=== PATIENT | male | born 1970 | race African-American/Black ===

== ENCOUNTER 2016-11-10 15:17 | Emergency (ER) | payer OTHER ==
[2016-11-10 16:02] VITALS: BP 128/81; PULSE 93; TEMP 102; BMI 23.6
[2016-11-10] MEDS ORDERED: ACETAMINOPHEN 325 MG TABLET (FP) PO ONE (16:26)
[2016-11-10] MEDS ORDERED: ACETAMINOPHEN 325 MG TABLET (FP) ONE (16:40)
--- NOTE | 2016-11-10 17:08 | PDOC ---
History of Present Illness - General History Source: Patient, Spouse Exam Limitations: No Limitations - History of Present Illness Initial Comments: 11/10/16 17:15 Patient is a 46 year old male with significant past medical history of severe polymyositis (since 1999) who presents to the ED with complaining of productive cough, fever and chills. Patient notes that he is experiencing chills and diffuse body aches, but denies vomiting and nausea. He also reports increased muscle sensitivity. He notes that he took 2 tylenol this AM for the fever. Patient reports recent sick contact with his who had recent flu. As per the patient did not receive a flu shot this year. Patient was diagnosed with polymyositis in 1999 and has diffuse motor weakness and does not ambulate. [employer] - Dr. Mustafa <Temi Padilla - Last Filed: 11/10/16 19:30> <Karen Echeverria - Last Filed: 11/10/16 20:27> - General Chief Complaint: Respiratory Stated Complaint: WEAKNESS OF MUSCLE Time Seen by Provider: 11/10/16 16:20 Past History <Temi Padilla - Last Filed: 11/10/16 19:30> - Past Medical History Other medical history: polymyositis - Psycho/Social/Smoking Cessation Hx Suicidal Ideation: No Smoking History: Never smoked Information on smoking cessation initiated: No <Karen Echeverria - Last Filed: 11/10/16 20:27> - Past Medical History Allergies/Adverse Reactions: Allergies Allergy/AdvReac Type Severity Reaction Status Date / Time No Known Allergies Allergy Verified 11/10/16 16:03 Home Medications: Ambulatory Orders Azithromycin [Zithromax -] 250 mg PO UTDICT #6 tab 11/10/16 Folic Acid - 1 mg PO DAILY 11/10/16 Methotrexate Sodium [Methotrexate] 0 mg PO WEEKLY 11/10/16 Oseltamivir Phosphate [Tamiflu -] 75 mg PO BID #10 capsule 11/10/16 Prednisone [Deltasone] 25 mg PO DAILY 11/10/16 Review of Systems - Review of Systems Able to Perform ROS?: Yes Comments:: 11/10/16 17:16 CONSTITUTIONAL: Present: fever, chills, generalized weakness, diffuse body aches Absent: diaphoresis, malaise, loss of appetite HEENT: Absent: rhinorrhea, nasal congestion, throat pain, throat swelling, difficulty swallowing, mouth swelling, ear pain, eye pain, visual Changes CARDIOVASCULAR: Absent: chest pain, syncope, palpitations, irregular heart rate, lightheadedness , peripheral edema RESPIRATORY: Present: cough Absent: shortness of breath, dyspnea with exertion, orthopnea, wheezing, stridor , hemoptysis GASTROINTESTINAL: Absent: abdominal pain, abdominal distension, nausea, vomiting, diarrhea, constipation, melena, hematochezia GENITOURINARY: Absent: dysuria, frequency, urgency, hesitancy, hematuria, flank pain, genital pain MUSCULOSKELETAL: Absent: myalgia, arthralgia, joint swelling SKIN: Absent: rash, itching, pallor HEMATOLOGIC/IMMUNOLOGIC: Absent: easy bleeding, easy bruising, lymphadenopathy, frequent infections ENDOCRINE: Absent: unexplained weight gain, unexplained weight loss, heat intolerance, cold intolerance NEUROLOGIC: Present: muscle sensitivity and weakness Absent: headache, dizziness, seizure, mental status changes, bladder or bowel incontinence PSYCHIATRIC: Absent: anxiety, depression, suicidal or homicidal ideation, hallucinations. <Temi Padilla - Last Filed: 11/10/16 19:30> *Physical Exam - Vital Signs Last Vital Signs Temp Pulse Resp BP Pulse Ox 102 F H 93 H 20 128/81 96 11/10/16 15:59 11/10/16 15:59 11/10/16 15:59 11/10/16 15:59 11/10/16 16:52 - Physical Exam Comments: 11/10/16 17:16 GENERAL: +Warm, A&OX3. Well developed, well nourished. No acute distress. HEENT: Normocephalic, atraumatic. PERRLA, EOMI. No conjunctival pallor. Sclera are non- icteric. Moist mucous membranes. Oropharynx is clear. NECK: Supple. Full ROM. No JVD. Carotid pulses 2+ and symmetric, without bruits. No thyromegaly. No lymphadenopathy. CARDIOVASCULAR: +Tachycardic. No murmurs, rubs, or gallops. Distal pulses are 2+ and symmetric. PULMONARY: +Scattered rhonchi. No evidence of respiratory distress. Lungs clear to auscultation bilaterally. No wheezing, no rales. ABDOMINAL: Soft. Non-tender. Non-distended. No rebound or guarding. No organomegaly. Normoactive bowel sounds. MUSCULOSKELETAL Normal range of motion at all joints. No bony deformities or tenderness. No CVA tenderness. EXTREMITIES: +extreme lower extremity weakness. No cyanosis. No clubbing. No edema. No calf tenderness. SKIN: Warm and dry. Normal capillary refill. No rashes. No jaundice. NEUROLOGICAL: there is no resistance to gravity 2/5 , unable to move extremities, A&OX3 PSYCHIATRIC: Cooperative. Good eye contact. Appropriate mood and affect. <Temi Padilla - Last Filed: 11/10/16 19:30> - Vital Signs Last Vital Signs Temp Pulse Resp BP Pulse Ox 102 F H 93 H 20 128/81 96 11/10/16 15:59 11/10/16 15:59 11/10/16 15:59 11/10/16 15:59 11/10/16 16:52 <Karen Echeverria - Last Filed: 11/10/16 20:27> Heart Score/ECG Review #1 11/10/16 17:17 EKG: Sinus rhythm at 80 bpm with premature ventricular complexes Possible left atrial enlargement Incomplete right bundle branch block Left anterior fascicular block Left ventricular hypertrophy with repolarization abnormality <Temi Padilla - Last Filed: 11/10/16 19:30> ED Treatment Course - LABORATORY CBC & Chemistry Diagram: 11/10/16 17:00 11/10/16 17:00 - ADDITIONAL ORDERS Additional order review: 11/10/16 16:43 Influenza Types A,B Antigen (DEVI) - Final Nasopharyngeal Swab - Final - RADIOLOGY Radiology Studies Ordered: 11/10/16 17:17 CXR: Left retrocardiac infiltrate and possible small left effusion is noted. Atelectasis at the right base is noted and cannot exclude small infiltrate. Cardiac silhouette is upper limits of normal in size. IMPRESSION: Left retrocardiac infiltrate. See above. Reported By: Annie Quintero MD - Medications Given in the ED: ED Medications Discontinued Medications Generic Name Dose Route Start Last Admin Trade Name Freq PRN Reason Stop Dose Admin Acetaminophen 650 mg 11/10/16 16:26 11/10/16 16:45 Tylenol - PO 11/10/16 16:27 650 mg ONCE ONE Administration <Temi Padilla - Last Filed: 11/10/16 19:30> - LABORATORY CBC & Chemistry Diagram: 11/10/16 17:00 11/10/16 17:00 - Medications Given in the ED: ED Medications Discontinued Medications Generic Name Dose Route Start Last Admin Trade Name Kahlil PRN Reason Stop Dose Admin Acetaminophen 650 mg 11/10/16 16:26 11/10/16 16:45 Tylenol - PO 11/10/16 16:27 650 mg ONCE ONE Administration <Karen Echeverria - Last Filed: 11/10/16 20:27> Medical Decision Making - Medical Decision Making 11/10/16 17:18 A page was placed to Dr. Mustafa. Awaiting a call back. 11/10/16 18:50 A call was placed to Dr. Mustafa at his cell phone since there was no call back from his service. Awaiting a call back. 11/10/16 18:56 A second page was placed to Dr. Mustafa at his service. 11/10/16 19:30 A third page was placed to Dr. Mustafa. <Temi Padilla - Last Filed: 11/10/16 19:30> - Medical Decision Making 11/10/16 20:24 46-year-old male with a history of polymyositis has fever, coughing and nasal congestion. His had the flu last week. Patient's influenza culture is positive. Pulse ox is 96, 97% on room and he denies any dyspnea or chest pain -pt started on tamiflu I spoke at length with the pt and his and explained that if he feels he has any difficulty breathing ,they are to call 911 and return to the ER <Karen Echeverria - Last Filed: 11/10/16 20:27> *DC/Admit/Observation/Transfer - Attestations Scribe Attestion: 11/10/16 17:18 Documentation prepared by ELTON Villarreal, acting as medical field representative for Karen Echeverria MD. <Temi Padilla - Last Filed: 11/10/16 19:30> <Karen Echeverria - Last Filed: 11/10/16 20:27> Diagnosis at time of Disposition: Influenza Fever Qualifiers: Fever type: unspecified Qualified Code(s): R50.9 - Fever, unspecified - Discharge Dispostion Disposition: HOME Condition at time of disposition: Stable - Prescriptions Prescriptions: Oseltamivir Phosphate [Tamiflu -] 75 mg PO BID #10 capsule Azithromycin [Zithromax -] 250 mg PO UTDICT #6 tab - Referrals Referrals: Sera Sidhu MD [Primary Care Provider] - - Patient Instructions Printed Discharge Instructions: DI for Influenza -- Adult, DI for Fever ( Symptom) -- Adult Additional Instructions: You have the flu IF YOU DEVELOP ANY DIFFICULTY BREATHING CALL 911 AND RETURN TO THE EMERGENCY DEPARTMENT PLEASE [employer] YOUR MEDICATIONS AT YOUR [facility]
[2016-11-10] MEDS ORDERED: AZITHROMYCIN IVPB 250 ML IVPB ONE (17:17)
[2016-11-10] MEDS ORDERED: OSELTAMIVIR PHOSPHATE 75 MG CAPSULE ONE (17:17)
[2016-11-10] MEDS ORDERED: CEFTRIAXONE 50 ML ONE (17:17)
[2016-11-10] MEDS ORDERED: AZITHROMYCIN IVPB 500 MG in DEXTROSE 5%-WATER - 250 ML IVPB ONE (17:23)
[2016-11-10] MEDS ORDERED: OSELTAMIVIR PHOSPHATE 75 MG CAPSULE PO ONE (17:23)
[2016-11-10] MEDS ORDERED: CEFTRIAXONE 1 GM in DEXTROSE 5%-WATER - 50 ML IVPB ONE (17:23)
[2016-11-10 17:39] LABS: MCH 25.5 pg (25.7-33.7); MCHC 31.5 g/dl (32.0-35.9); MEAN CELL VOLUME 80.8 fl (80-96); MEAN PLT VOLUME 7.7 fl (7.5-11.1); PLATELET COUNT 213 K/MM3 (134-434); RDW 23.7 % (11.9-15.9); WHITE BLOOD COUNT 8.7 K/mm3 (4.0-10.0)
[2016-11-10 18:10] LABS: METAMYELOCYTE 2 % (0-2); PLATELET ESTIMATE ADEQUATE (NORMAL)
[2016-11-10 18:11] LABS: ANISOCYTOSIS 3+; OVALOCYTES 1+; PLATELET COMMENT2 NO CLUMPING NOTED; POIKILOCYTOSIS 1+; POLYCHROMASIA 1+
[2016-11-10 18:41] LABS: ALBUMIN 3.3 g/dl (3.4-5.0); ALK PHOS 93 U/L (45-117); ANION GAP 9 (8-16); BILIRUBIN,TOTAL 0.6 mg/dL (0.2-1.0); CALCIUM 8.2 mg/dL (8.5-10.1); CO2 30 mmol/L (21-32); CREATININE 0.2 mg/dL (0.7-1.3); GLUCOSE,RANDOM 79 mg/dL (74-106); SGOT/AST 14 U/L (15-37); SGPT/ALT 19 U/L (12-78); TOT PROT 6.4 g/dl (6.4-8.2)
[2016-11-10] MEDS ORDERED: SODIUM CHLORIDE 1,000 ML IV STA (19:39)
--- NOTE | 2016-11-11 12:53 | EKG ---
Test Reason : Blood Pressure : / mmHG Vent. Rate : 080 BPM Atrial Rate : 080 BPM P-R Int : 198 ms QRS Dur : 100 ms QT Int : 336 ms P-R-T Axes : 016 -74 084 degrees QTc Int : 387 ms SINUS RHYTHM WITH OCCASIONAL PREMATURE VENTRICULAR COMPLEXES POSSIBLE LEFT ATRIAL ENLARGEMENT NONSPECIFIC T WAVE ABNORMALITY LEFT ANTERIOR FASCICULAR BLOCK LEFT VENTRICULAR HYPERTROPHY WITH REPOLARIZATION ABNORMALITY ABNORMAL ECG NO PREVIOUS ECGS AVAILABLE Confirmed by NATA COLEMAN, PABLITO ([id number]) on 11/11/2016 12:53:14 PM Referred By: Confirmed By:PABLITO PEACE MD
== END 2016-11-10 21:28 | disposition home or self-care (01) ==
LOC: JER 15:17
PROC: 3E0337Z Introduction of Electrolytic and Water Balance Substance into Peripheral Vein, Percutaneous Approach (ICD-10-PCS; principal; 2016-11-10)
PROC: 3E03329 Introduction of Other Anti-infective into Peripheral Vein, Percutaneous Approach (ICD-10-PCS; 2016-11-10)
PROC: 3E03329 Introduction of Other Anti-infective into Peripheral Vein, Percutaneous Approach (ICD-10-PCS; 2016-11-10)
DX: J09.X2 Influenza due to identified novel influenza A virus with other respiratory manifestations (principal); M33.20 Polymyositis, organ involvement unspecified
CPT/HCPCS: 36415; 71010-TC; 80053; 85025; 87040; 87804; 93005; 93010; 96361; 96365; 96367; 99283-25

== ENCOUNTER 2020-12-03 17:20 | Inpatient (IN) | payer OTHER ==
[2020-12-03] MEDS ORDERED: SODIUM CHLORIDE 1,000 ML IV STA (17:33)
[2020-12-03] MEDS ORDERED: ETOMIDATE 20 MG/10 ML AMPUL IVPUSH ONE (17:34)
[2020-12-03] MEDS ORDERED: ROCURONIUM BROMIDE 50 MG/5 ML VIAL IV ONE (17:34)
[2020-12-03] MEDS ORDERED: MIDAZOLAM IN 0.9 % SOD.CHLORID 100 MG/100 ML PLAST..BAG IVPB SCH (17:45)
[2020-12-03 18:24] LABS: VENOUS O2 SATURATION 99.8 % (70-80); VENOUS PCO2 47.9 mmHg (38-52); VENOUS PH 7.516 (7.310-7.410)
[2020-12-03 18:25] LABS: BASO % 0.1 % (0-2.0); EOS % 0.1 % (0-4.5); HEMATOCRIT 43.5 % (35.4-49); HEMOGLOBIN 14.5 GM/dL (11.7-16.9); MCH 31.2 pg (25.7-33.7); MCHC 33.4 g/dl (32.0-35.9); MEAN CELL VOLUME 93.4 fl (80-96); MEAN PLT VOLUME 8.4 fl (7.5-11.1); NEUT % 86.8 % (42.8-82.8); PLATELET COUNT 146 K/MM3 (134-434); RBC 4.66 M/mm3 (4.00-5.60); RDW 16.7 % (11.9-15.9); WHITE BLOOD COUNT 2.8 K/mm3 (4.0-10.0)
[2020-12-03 18:31] LABS: INR 1.06 (0.83-1.09); PROTHROMBIN TIME (PATIENT) 12.8 SEC (9.7-13.0)
[2020-12-03 18:34] LABS: ACTIVATED PTT 29.9 SECONDS (25.2-36.5)
[2020-12-03] MEDS ORDERED: CEFTRIAXONE 1 GM in DEXTROSE 5%-WATER - 100 ML IVPB ONE (18:52)
[2020-12-03] MEDS ORDERED: SODIUM CHLORIDE 1,000 ML IV SCH (19:30)
[2020-12-03] MEDS ORDERED: MIDAZOLAM 100 MG/100 ML MG IVPB ONE (20:05)
[2020-12-03] MEDS ORDERED: FENTANYL NS IVPB 500 MCG/100 ML BAG IVPB ONE (20:05)
[2020-12-03 20:11] LABS: LDH 287 U/L (87-246)
[2020-12-03 20:12] LABS: ALK PHOS 58 U/L (45-117); N-TERMINAL BNP 9113.4 pg/ml (5-125)
[2020-12-03 20:13] LABS: ALBUMIN 3.2 g/dl (3.4-5.0); ANION GAP 15 MMOL/L (8-16); BILIRUBIN,DIRECT 0.2 mg/dL (0.0-0.2); BILIRUBIN,TOTAL 0.7 mg/dL (0.2-1); BLOOD UREA NITROGEN 18.1 mg/dL (7-18); CALCIUM 8.3 mg/dL (8.5-10.1); CHLORIDE 76 mmol/L (98-107); CO2 31 mmol/L (21-32); CREATININE < 0.2 mg/dL (0.55-1.3); GLUCOSE,RANDOM 120 mg/dL (74-106); MAGNESIUM 1.8 mg/dL (1.8-2.4); PHOSPHOROUS 3.2 mg/dL (2.5-4.9); POTASSIUM 4.3 mmol/L (3.5-5.1); SGOT/AST 16 U/L (15-37); SGPT/ALT 14 U/L (13-61); SODIUM 122 mmol/L (136-145); TOT PROT 5.8 g/dl (6.4-8.2)
[2020-12-03] MEDS: FENTANYL NS IVPB 500 MCG/100 ML BAG IVPB SCH (20:28)
[2020-12-03] MEDS ORDERED: CEFTRIAXONE 1 GM/50 ML BAG ONE (20:29)
[2020-12-03 21:28] LABS: COCAINE, UR NEGATIVE ng/ml (CUTOFF=300); OPIATES, URI NEGATIVE ng/ml (CUTOFF=300); PHENCYCLIDINE,URINE NEGATIVE ng/ml (CUTOFF=25); URINE AMPHETAMINES NEGATIVE ng/ml (CUTOFF=500); URINE BENZODIAZEPINES NEGATIVE ng/ml (CUTOFF=200)
[2020-12-03 21:29] LABS: METHADONE, UR NEGATIVE ng/ml (CUTOFF=300)
[2020-12-03 21:33] LABS: URINE BARBITURATES NEGATIVE ng/ml (CUTOFF=200)
[2020-12-03 21:34] LABS: EPI CELLS 13 /uL (0-25.1); HYALINE CASTS 0 /uL (0-3.1); PH,URINE 7.5 (5.0-8.0); URINE APPEARANCE CLEAR; URINE BACTERIA >9,000 /uL (0-1359); URINE BILIRUBIN NEGATIVE (NEGATIVE); URINE COLOR YELLOW; URINE GLUCOSE (UA) NEGATIVE (NEGATIVE); URINE KETONE TRACE (NEGATIVE); URINE LEUK ESTERASE NEGATIVE (NEGATIVE); URINE NITRITE POSITIVE (NEGATIVE); URINE PROTEIN NEGATIVE (NEGATIVE); URINE RBC 5 /uL (0-23.9); URINE UROBILINOGEN 0.2 mg/dL (0.2-1.0); URINE WBC 19 /uL (0-25.8)
[2020-12-03] MEDS: MUPIROCIN 2% TOPICAL OINTMENT FOR DECOLONIZATION NS SCH (22:12)
[2020-12-03] MEDS: CHLORHEXIDINE GLUCONATE 4% CLEANSER FOR DECOLONIZATION TP SCH (22:12)
[2020-12-04] MEDS ORDERED: SODIUM CHLORIDE 500 ML IV STA (03:07)
[2020-12-04 07:03] LABS: BASO % 0.2 % (0-2.0); HEMATOCRIT 34.4 % (35.4-49); HEMOGLOBIN 11.4 GM/dL (11.7-16.9); LYMPH % 2.3 % (8-40); MCH 31.3 pg (25.7-33.7); MCHC 33.3 g/dl (32.0-35.9); MEAN PLT VOLUME 9.3 fl (7.5-11.1); MONO % 9.6 % (3.8-10.2); NEUT % 87.9 % (42.8-82.8); RBC 3.66 M/mm3 (4.00-5.60); RDW 16.6 % (11.9-15.9); WHITE BLOOD COUNT 9.9 K/mm3 (4.0-10.0)
[2020-12-04 07:52] LABS: CHLORIDE 97 mmol/L (98-107); SODIUM 135 mmol/L (136-145)
[2020-12-04 08:03] LABS: INR 1.26 (0.83-1.09); PROTHROMBIN TIME (PATIENT) 15.1 SEC (9.7-13.0)
[2020-12-04 08:06] LABS: ACTIVATED PTT 30.3 SECONDS (25.2-36.5)
[2020-12-04 08:31] LABS: ALBUMIN 2.1 g/dl (3.4-5.0); BLOOD UREA NITROGEN 10.9 mg/dL (7-18); CO2 28 mmol/L (21-32)
[2020-12-04 08:32] LABS: MAGNESIUM 1.2 mg/dL (1.8-2.4)
[2020-12-04 08:34] LABS: SGPT/ALT 8 U/L (13-61)
[2020-12-04 08:35] LABS: BILIRUBIN,TOTAL 0.8 mg/dL (0.2-1); TOT PROT 3.8 g/dl (6.4-8.2)
[2020-12-04 08:36] LABS: SGOT/AST 6 U/L (15-37)
[2020-12-04 08:37] LABS: ALK PHOS 37 U/L (45-117)
[2020-12-04] MEDS: PANTOPRAZOLE SODIUM 40 MG VIAL IVPUSH SCH (09:47)
[2020-12-04 10:34] LABS: PLATELET COUNT 95 K/MM3 (134-434)
[2020-12-04 10:45] LABS: ANION GAP 10 MMOL/L (8-16); CREATININE < 0.2 mg/dL (0.55-1.3)
[2020-12-04] MEDS ORDERED: METOPROLOL TARTRATE 5 MG/5 ML VIAL ONE (11:24)
[2020-12-04 11:25] LABS: CALCIUM 6.3 mg/dL (8.5-10.1); GLUCOSE,RANDOM 49 mg/dL (74-106); POTASSIUM 2.3 mmol/L (3.5-5.1)
[2020-12-04] MEDS ORDERED: METOPROLOL TARTRATE 5 MG/5 ML VIAL IVPUSH ONE (11:54)
[2020-12-04] MEDS ORDERED: MAGNESIUM SULF 50% (8.12 MEQ/2 ML-1 GM VIAL) IVPB ONE (12:13)
[2020-12-04] MEDS ORDERED: SODIUM CHLORIDE 1,000 ML IV SCH (12:15)
[2020-12-04 13:56] LABS: BASO % 0.1 % (0-2.0); HEMATOCRIT 39.9 % (35.4-49); HEMOGLOBIN 13.3 GM/dL (11.7-16.9); LYMPH % 2.1 % (8-40); MCHC 33.3 g/dl (32.0-35.9); MEAN CELL VOLUME 93.3 fl (80-96); MEAN PLT VOLUME 8.8 fl (7.5-11.1); MONO % 6.5 % (3.8-10.2); NEUT % 91.3 % (42.8-82.8); PLATELET COUNT 124 K/MM3 (134-434); RBC 4.28 M/mm3 (4.00-5.60); RDW 16.4 % (11.9-15.9); WHITE BLOOD COUNT 12.7 K/mm3 (4.0-10.0)
[2020-12-04 14:18] LABS: CHLORIDE 93 mmol/L (98-107); SODIUM 134 mmol/L (136-145)
[2020-12-04 14:23] LABS: CALCIUM 7.5 mg/dL (8.5-10.1)
[2020-12-04 14:24] LABS: ALBUMIN 2.3 g/dl (3.4-5.0); BLOOD UREA NITROGEN 10.3 mg/dL (7-18); MAGNESIUM 1.4 mg/dL (1.8-2.4)
[2020-12-04 14:26] LABS: CO2 32 mmol/L (21-32); GLUCOSE,RANDOM 52 mg/dL (74-106); SGPT/ALT 9 U/L (13-61)
[2020-12-04 14:27] LABS: PHOSPHOROUS 2.6 mg/dL (2.5-4.9); SGOT/AST 6 U/L (15-37)
[2020-12-04 14:28] LABS: ALK PHOS 44 U/L (45-117); TOT PROT 4.2 g/dl (6.4-8.2)
[2020-12-04 14:34] LABS: ANION GAP 9 MMOL/L (8-16)
[2020-12-04] MEDS ORDERED: PIPERACILLIN/TAZOBACTAM 3.375 GM VIAL IVPB ONE (14:57)
[2020-12-04] MEDS ORDERED: DEXTROSE 5%-WATER - 50 ML IVPB ONE (14:57)
[2020-12-04] MEDS: ENOXAPARIN NA (PORCINE) 60 MG/0.6 ML DISP.SYRIN SQ SCH (15:00)
[2020-12-04] MEDS: PIPERACILLIN/TAZOB 3.375 GM 3.375 GM in DEXTROSE 5%-WATER - 50 ML IVPB SCH ×2 (15:01→18:47)
[2020-12-04] MEDS ORDERED: DEXTROSE 50%-WATER 25 GM/50 ML DISP.SYRIN ONE (15:10)
[2020-12-04 15:16] LABS: CREATININE < 0.2 mg/dL (0.55-1.3); POTASSIUM 2.6 mmol/L (3.5-5.1)
[2020-12-04] MEDS ORDERED: DEXTROSE 5%-WATER - 1,000 ML IV SCH (15:30)
[2020-12-04] MEDS: MAGNESIUM OXIDE 400 MG TABLET (FP) NGT SCH (15:35)
[2020-12-04] MEDS: METOPROLOL TARTRATE 25 MG TABLET (FP) PO SCH ×2 (15:35→21:58)
[2020-12-04] MEDS ORDERED: DEXTROSE 50%-WATER - 25 GM/50 ML VIAL IVPUSH ONE (15:38)
[2020-12-04] MEDS ORDERED: SODIUM CHLORIDE 0.9% 500 ML INFUS.BAG IV ONE (15:38)
[2020-12-04] MEDS: KCL 10 MEQ IVPB 10 MEQ/100 ML INFUS.BAG IVPB SCH ×3 (15:57→18:43)
[2020-12-04] MEDS ORDERED: VASOPRESSIN 20 UNITS/ML VIAL IV ONE ×2 (16:07→17:03)
[2020-12-04] MEDS ORDERED: POTASSIUM CHLORIDE ORAL LIQUID 20 MEQ/15 ML PO ONE (16:10)
[2020-12-04] MEDS: D5-LR+20 MEQ KCL - 20 MEQ/1,000 ML INFUS.BAG IV SCH (16:28)
[2020-12-04] MEDS: MUPIROCIN 2% TOPICAL OINTMENT FOR DECOLONIZATION NS SCH ×2 (16:30→21:57)
[2020-12-04 16:58] LABS: ANISOCYTOSIS 1+; MACROCYTOSIS 0; OVALOCYTE 1+; PLATELET ESTIMATE DECREASED
[2020-12-04] MEDS ORDERED: MAGNESIUM IVPB ONE ×2 (18:16→18:17)
[2020-12-04] MEDS ORDERED: DEXTROSE 5% IVPB ONE ×2 (18:16→18:17)
[2020-12-04] MEDS ORDERED: WATER IVPB ONE ×2 (18:16→18:17)
[2020-12-04] MEDS ORDERED: MAGNESIUM 1GM/D5W - 1 GM/100 ML IVPB IVPB ONE (18:41)
[2020-12-04] MEDS ORDERED: DEXTROSE 5%-WATER 100 ML IVPB ONE (18:41)
[2020-12-04] MEDS ORDERED: DEXMEDETOMIDINE IN 0.9 % NACL 200 MCG/50 ML EACH IVPB SCH (19:15)
[2020-12-04] MEDS: VASOPRESSIN 40 UNITS in SODIUM CHLORIDE 98 ML IVPB SCH (19:56)
[2020-12-04 21:37] LABS: POTASSIUM 3.3 mmol/L (3.5-5.1)
[2020-12-04 21:38] LABS: CALCIUM 7.6 mg/dL (8.5-10.1)
[2020-12-04 21:42] LABS: CREATININE 0.2 mg/dL (0.55-1.3)
[2020-12-04] MEDS: CHLORHEXIDINE GLUCONATE 4% CLEANSER FOR DECOLONIZATION TP SCH (21:57)
[2020-12-05] MEDS ORDERED: PIPERACILLIN/TAZOBACTAM 3.375 GM VIAL IVPB ONE ×4 (00:28→18:32)
[2020-12-05] MEDS ORDERED: DEXTROSE 5%-WATER - 50 ML IVPB ONE ×4 (00:28→18:32)
[2020-12-05] MEDS ORDERED: methylPREDNISolone NA SUCC 1000 MG/8 ML VIAL IVPB SCH (00:30)
[2020-12-05] MEDS ORDERED: methylPREDNISolone NA SUCC 40 MG/1 ML VIAL IVPB SCH ×2 (00:36→00:45)
[2020-12-05] MEDS: ENOXAPARIN NA (PORCINE) 60 MG/0.6 ML DISP.SYRIN SQ SCH ×2 (00:46→12:41)
[2020-12-05] MEDS ORDERED: ACETAMINOPHEN 1000 MG/100 ML VIAL (NON FORMULARY) IVPB ONE ×3 (01:13→22:30)
[2020-12-05] MEDS ORDERED: LIDOCAINE 5% TOPICAL PATCH TP ONE (01:14)
[2020-12-05] MEDS: PIPERACILLIN/TAZOB 3.375 GM 3.375 GM in DEXTROSE 5%-WATER - 50 ML IVPB SCH ×3 (01:29→18:02)
[2020-12-05] MEDS: D5-LR+20 MEQ KCL - 20 MEQ/1,000 ML INFUS.BAG IV SCH ×2 (02:19→17:06)
[2020-12-05] MEDS ORDERED: SODIUM CHLORIDE 500 ML IV STA (02:25)
[2020-12-05 07:14] LABS: BASO % 0.3 % (0-2.0); HEMATOCRIT 40.3 % (35.4-49); HEMOGLOBIN 13.2 GM/dL (11.7-16.9); LYMPH % 0.6 % (8-40); MCH 30.7 pg (25.7-33.7); MCHC 32.8 g/dl (32.0-35.9); MEAN CELL VOLUME 93.7 fl (80-96); MEAN PLT VOLUME 8.9 fl (7.5-11.1); MONO % 3.9 % (3.8-10.2); NEUT % 95.2 % (42.8-82.8); PLATELET COUNT 106 K/MM3 (134-434); RDW 17.2 % (11.9-15.9)
[2020-12-05 07:33] LABS: CHLORIDE 98 mmol/L (98-107); POTASSIUM 3.6 mmol/L (3.5-5.1); SODIUM 136 mmol/L (136-145)
[2020-12-05 07:48] LABS: ALBUMIN 1.9 g/dl (3.4-5.0); BLOOD UREA NITROGEN 8.7 mg/dL (7-18); CALCIUM 7.2 mg/dL (8.5-10.1)
[2020-12-05 07:49] LABS: ANION GAP 9 MMOL/L (8-16); CO2 29 mmol/L (21-32); GLUCOSE,RANDOM 131 mg/dL (74-106)
[2020-12-05 07:51] LABS: CREATININE < 0.2 mg/dL (0.55-1.3); PHOSPHOROUS 2.3 mg/dL (2.5-4.9); SGOT/AST 6 U/L (15-37); SGPT/ALT 7 U/L (13-61)
[2020-12-05 07:52] LABS: BILIRUBIN,TOTAL 1.2 mg/dL (0.2-1); LDH 146 U/L (87-246); TOT PROT 3.8 g/dl (6.4-8.2)
[2020-12-05 07:54] LABS: ALK PHOS 39 U/L (45-117)
[2020-12-05] MEDS: PANTOPRAZOLE SODIUM 40 MG VIAL IVPUSH SCH (09:31)
[2020-12-05] MEDS: MAGNESIUM OXIDE 400 MG TABLET (FP) NGT SCH (09:32)
[2020-12-05] MEDS: METOPROLOL TARTRATE 25 MG TABLET (FP) PO SCH ×2 (09:32→21:16)
[2020-12-05] MEDS: MUPIROCIN 2% TOPICAL OINTMENT FOR DECOLONIZATION NS SCH ×2 (09:32→21:17)
[2020-12-05] MEDS ORDERED: CEFTRIAXONE 1 GM in DEXTROSE 5%-WATER - 50 ML IVPB SCH (10:00)
[2020-12-05 11:13] LABS: ANISOCYTOSIS 1+; MACROCYTOSIS 0; PLATELET ESTIMATE DECREASED
[2020-12-05] MEDS ORDERED: VASOPRESSIN 20 UNITS/ML VIAL IV ONE (12:58)
[2020-12-05] MEDS: VASOPRESSIN 40 UNITS in SODIUM CHLORIDE 98 ML IVPB SCH (18:03)
[2020-12-05] MEDS: LIDOCAINE PATCH REMOVAL MC SCH (21:17)
[2020-12-05] MEDS: CHLORHEXIDINE GLUCONATE 4% CLEANSER FOR DECOLONIZATION TP SCH (21:17)
[2020-12-06] MEDS ORDERED: PIPERACILLIN/TAZOBACTAM 3.375 GM VIAL IVPB ONE ×3 (00:40→20:43)
[2020-12-06] MEDS ORDERED: DEXTROSE 5%-WATER - 50 ML IVPB ONE ×3 (00:40→20:43)
[2020-12-06] MEDS ORDERED: ALBUTEROL SO4 2.5/IPRATROPIUM 0.5 INH SOL 3 ML VIAL.NEB. NEB ONE (06:51)
[2020-12-06 07:31] LABS: HEMOGLOBIN 14.3 GM/dL (11.7-16.9); MCHC 33.2 g/dl (32.0-35.9); MEAN CELL VOLUME 93.5 fl (80-96); MEAN PLT VOLUME 8.6 fl (7.5-11.1); PLATELET COUNT 121 K/MM3 (134-434); RBC 4.61 M/mm3 (4.00-5.60); RDW 17.2 % (11.9-15.9); WHITE BLOOD COUNT 11.9 K/mm3 (4.0-10.0)
[2020-12-06 08:07] LABS: CREATININE 0.2 mg/dL (0.55-1.3)
[2020-12-06 08:09] LABS: BILIRUBIN,TOTAL 1.1 mg/dL (0.2-1); TOT PROT 4.9 g/dl (6.4-8.2)
[2020-12-06 08:11] LABS: CALCIUM 8.2 mg/dL (8.5-10.1)
[2020-12-06 08:17] LABS: ALBUMIN 2.5 g/dl (3.4-5.0)
[2020-12-06] MEDS: MAGNESIUM OXIDE 400 MG TABLET (FP) NGT SCH (09:23)
[2020-12-06] MEDS: methylPREDNISolone NA SUCC 40 MG/1 ML VIAL IVPB SCH (09:23)
[2020-12-06] MEDS: MUPIROCIN 2% TOPICAL OINTMENT FOR DECOLONIZATION NS SCH ×2 (09:26→21:04)
[2020-12-06] MEDS: PANTOPRAZOLE SODIUM 40 MG VIAL IVPUSH SCH (09:26)
[2020-12-06] MEDS: PIPERACILLIN/TAZOB 3.375 GM 3.375 GM in DEXTROSE 5%-WATER - 50 ML IVPB SCH ×2 (09:26→20:44)
[2020-12-06] MEDS: METOPROLOL TARTRATE 25 MG TABLET (FP) PO SCH ×2 (09:26→21:05)
[2020-12-06] MEDS ORDERED: METOPROLOL TARTRATE 5 MG/5 ML VIAL IVPUSH ONE (09:45)
[2020-12-06] MEDS: ENOXAPARIN NA (PORCINE) 60 MG/0.6 ML DISP.SYRIN SQ SCH (13:09)
[2020-12-06] MEDS ORDERED: DEXMEDETOMIDINE IN 0.9 % NACL 200 MCG/50 ML EACH IVPB SCH (15:00)
[2020-12-06] MEDS: DEXMEDETOMIDINE IN 0.9 % NACL 400 MCG/100 ML VIAL IVPB SCH (16:24)
[2020-12-06 19:48] LABS: HEMATOCRIT 39.7 % (35.4-49); MCH 30.8 pg (25.7-33.7); MCHC 32.7 g/dl (32.0-35.9); MEAN PLT VOLUME 9.2 fl (7.5-11.1); PLATELET COUNT 115 K/MM3 (134-434); RBC 4.22 M/mm3 (4.00-5.60); RDW 17.4 % (11.9-15.9); WHITE BLOOD COUNT 18.1 K/mm3 (4.0-10.0)
[2020-12-06] MEDS ORDERED: MIDAZOLAM HCL 2 MG/2 ML SINGLE DOSE VIAL IVPUSH ONE (20:02)
[2020-12-06 20:08] LABS: CHLORIDE 102 mmol/L (98-107); POTASSIUM 3.6 mmol/L (3.5-5.1); SODIUM 138 mmol/L (136-145)
[2020-12-06 20:11] LABS: CALCIUM 7.9 mg/dL (8.5-10.1)
[2020-12-06 20:12] LABS: ALBUMIN 2.2 g/dl (3.4-5.0); ANION GAP 7 MMOL/L (8-16); BLOOD UREA NITROGEN 10.7 mg/dL (7-18); CO2 29 mmol/L (21-32); GLUCOSE,RANDOM 92 mg/dL (74-106); MAGNESIUM 1.7 mg/dL (1.8-2.4)
[2020-12-06] MEDS: DEXTROSE 5%-LACTATED RINGERS 1,000 ML IV SCH (20:12)
[2020-12-06 20:14] LABS: PHOSPHOROUS 2.4 mg/dL (2.5-4.9); SGOT/AST 20 U/L (15-37); SGPT/ALT 23 U/L (13-61)
[2020-12-06 20:17] LABS: BILIRUBIN,TOTAL 1.1 mg/dL (0.2-1); TOT PROT 4.3 g/dl (6.4-8.2)
[2020-12-06 20:18] LABS: ALK PHOS 71 U/L (45-117)
[2020-12-06 20:26] LABS: CREATININE < 0.2 mg/dL (0.55-1.3)
[2020-12-06] MEDS: LIDOCAINE PATCH REMOVAL MC SCH (21:05)
[2020-12-06] MEDS: CHLORHEXIDINE GLUCONATE 4% CLEANSER FOR DECOLONIZATION TP SCH (21:05)
[2020-12-06] MEDS ORDERED: MAGNESIUM SULF 50% (8.12 MEQ/2 ML-1 GM VIAL) IVPB ONE (22:48)
[2020-12-07] MEDS: ENOXAPARIN NA (PORCINE) 60 MG/0.6 ML DISP.SYRIN SQ SCH ×3 (00:13→23:57)
[2020-12-07] MEDS ORDERED: PIPERACILLIN/TAZOBACTAM 3.375 GM VIAL IVPB ONE ×3 (01:34→18:57)
[2020-12-07] MEDS ORDERED: DEXTROSE 5%-WATER - 50 ML IVPB ONE ×3 (01:34→18:57)
[2020-12-07] MEDS: PIPERACILLIN/TAZOB 3.375 GM 3.375 GM in DEXTROSE 5%-WATER - 50 ML IVPB SCH ×3 (01:41→19:16)
[2020-12-07 07:24] LABS: HEMATOCRIT 35.7 % (35.4-49); HEMOGLOBIN 11.8 GM/dL (11.7-16.9); MCH 31.1 pg (25.7-33.7); MCHC 33.1 g/dl (32.0-35.9); MEAN CELL VOLUME 93.8 fl (80-96); MEAN PLT VOLUME 10.2 fl (7.5-11.1); PLATELET COUNT 99 K/MM3 (134-434); RDW 17.5 % (11.9-15.9); WHITE BLOOD COUNT 8.8 K/mm3 (4.0-10.0)
[2020-12-07 07:29] LABS: CHLORIDE 104 mmol/L (98-107); POTASSIUM 3.1 mmol/L (3.5-5.1); SODIUM 141 mmol/L (136-145)
[2020-12-07 07:34] LABS: ALBUMIN 1.9 g/dl (3.4-5.0); ANION GAP 9 MMOL/L (8-16); CALCIUM 7.7 mg/dL (8.5-10.1); CO2 28 mmol/L (21-32); GLUCOSE,RANDOM 136 mg/dL (74-106); MAGNESIUM 2.2 mg/dL (1.8-2.4)
[2020-12-07 07:36] LABS: BILIRUBIN,TOTAL 1.2 mg/dL (0.2-1)
[2020-12-07 07:37] LABS: BLOOD UREA NITROGEN 10.8 mg/dL (7-18); PHOSPHOROUS 2.2 mg/dL (2.5-4.9); SGOT/AST 11 U/L (15-37); SGPT/ALT 17 U/L (13-61)
[2020-12-07 07:39] LABS: TOT PROT 3.8 g/dl (6.4-8.2)
[2020-12-07 07:40] LABS: ALK PHOS 55 U/L (45-117)
[2020-12-07] MEDS: NOREPINEPHRINE D5W PREMIX 16,000 MCG/500 ML BAG IVPB SCH (08:25)
[2020-12-07 08:29] LABS: CREATININE < 0.2 mg/dL (0.55-1.3)
[2020-12-07] MEDS ORDERED: KCL 10 MEQ IVPB 10 MEQ/100 ML INFUS.BAG IVPB SCH (09:15)
[2020-12-07 09:45] LABS: ARTERIAL BLD GAS O2 SATURATION 90.7 mmHg (95-98); ARTERIAL BLOOD GAS BASE EXCESS 2.1 mmol/L (-2-2); ARTERIAL BLOOD GAS PO2 56.8 mmHg (80-100); ARTERIAL BLOOD GAS pH 7.443 (7.350-7.450)
[2020-12-07] MEDS ORDERED: POTASSIUM CHLORIDE ORAL LIQUID 20 MEQ/15 ML PO ONE ×2 (10:30→18:45)
[2020-12-07] MEDS: methylPREDNISolone NA SUCC 40 MG/1 ML VIAL IVPB SCH (10:38)
[2020-12-07] MEDS: PANTOPRAZOLE SODIUM 40 MG VIAL IVPUSH SCH (10:38)
[2020-12-07] MEDS: MUPIROCIN 2% TOPICAL OINTMENT FOR DECOLONIZATION NS SCH ×2 (10:38→21:05)
[2020-12-07] MEDS ORDERED: POTASSIUM PHOSPHATE 30 MM in SODIUM CHLORIDE 250 ML IVPB ONE (11:00)
[2020-12-07] MEDS: METOPROLOL TARTRATE 25 MG TABLET (FP) PO SCH ×2 (11:37→21:05)
[2020-12-07] MEDS: MAGNESIUM OXIDE 400 MG TABLET (FP) NGT SCH (11:38)
[2020-12-07] MEDS: DEXMEDETOMIDINE IN 0.9 % NACL 400 MCG/100 ML VIAL IVPB SCH (17:00)
[2020-12-07] MEDS: LIDOCAINE PATCH REMOVAL MC SCH (21:04)
[2020-12-07] MEDS: CHLORHEXIDINE GLUCONATE 4% CLEANSER FOR DECOLONIZATION TP SCH (21:04)
[2020-12-07] MEDS: DEXTROSE 5%-LACTATED RINGERS 1,000 ML IV SCH (21:04)
[2020-12-08] MEDS ORDERED: PIPERACILLIN/TAZOBACTAM 3.375 GM VIAL IVPB ONE ×4 (01:50→20:56)
[2020-12-08] MEDS ORDERED: DEXTROSE 5%-WATER - 50 ML IVPB ONE ×4 (01:50→20:57)
[2020-12-08] MEDS: PIPERACILLIN/TAZOB 3.375 GM 3.375 GM in DEXTROSE 5%-WATER - 50 ML IVPB SCH ×3 (01:51→18:34)
[2020-12-08 06:58] LABS: HEMATOCRIT 38.7 % (35.4-49); HEMOGLOBIN 13.1 GM/dL (11.7-16.9); MCH 31.3 pg (25.7-33.7); MCHC 33.8 g/dl (32.0-35.9); MEAN CELL VOLUME 92.8 fl (80-96); MEAN PLT VOLUME 9.2 fl (7.5-11.1); PLATELET COUNT 102 K/MM3 (134-434); RBC 4.17 M/mm3 (4.00-5.60); RDW 17.1 % (11.9-15.9); WHITE BLOOD COUNT 11.2 K/mm3 (4.0-10.0)
[2020-12-08 07:16] LABS: CHLORIDE 105 mmol/L (98-107); POTASSIUM 4.6 mmol/L (3.5-5.1); SODIUM 140 mmol/L (136-145)
[2020-12-08 07:20] LABS: ALBUMIN 2.1 g/dl (3.4-5.0); ANION GAP 5 MMOL/L (8-16); BLOOD UREA NITROGEN 8.9 mg/dL (7-18); CALCIUM 7.9 mg/dL (8.5-10.1); CO2 30 mmol/L (21-32); GLUCOSE,RANDOM 142 mg/dL (74-106)
[2020-12-08 07:24] LABS: SGOT/AST 5 U/L (15-37); SGPT/ALT 18 U/L (13-61); TOT PROT 4.3 g/dl (6.4-8.2)
[2020-12-08 07:27] LABS: ALK PHOS 59 U/L (45-117)
[2020-12-08] MEDS: NOREPINEPHRINE D5W PREMIX 16,000 MCG/500 ML BAG IVPB SCH (08:00)
[2020-12-08 08:31] LABS: CREATININE < 0.2 mg/dL (0.55-1.3)
[2020-12-08] MEDS: PANTOPRAZOLE SODIUM 40 MG VIAL IVPUSH SCH (10:20)
[2020-12-08] MEDS: methylPREDNISolone NA SUCC 40 MG/1 ML VIAL IVPB SCH (10:45)
[2020-12-08] MEDS: MUPIROCIN 2% TOPICAL OINTMENT FOR DECOLONIZATION NS SCH (11:00)
[2020-12-08] MEDS: MAGNESIUM OXIDE 400 MG TABLET (FP) NGT SCH (11:00)
[2020-12-08] MEDS: METOPROLOL TARTRATE 25 MG TABLET (FP) PO SCH ×2 (11:00→21:22)
[2020-12-08] MEDS: ENOXAPARIN NA (PORCINE) 60 MG/0.6 ML DISP.SYRIN SQ SCH (12:56)
[2020-12-08] MEDS: DEXTROSE 5%-LACTATED RINGERS 1,000 ML IV SCH ×2 (19:00→21:27)
[2020-12-08] MEDS: FENTANYL NS IVPB 500 MCG/100 ML BAG IVPB SCH (21:21)
[2020-12-08] MEDS: CHLORHEXIDINE GLUCONATE 4% CLEANSER FOR DECOLONIZATION TP SCH (21:22)
[2020-12-08] MEDS: DEXMEDETOMIDINE IN 0.9 % NACL 400 MCG/100 ML VIAL IVPB SCH (21:26)
[2020-12-08] MEDS: LIDOCAINE PATCH REMOVAL MC SCH (22:30)
[2020-12-09] MEDS: ENOXAPARIN NA (PORCINE) 60 MG/0.6 ML DISP.SYRIN SQ SCH ×3 (01:10→23:53)
[2020-12-09] MEDS: PIPERACILLIN/TAZOB 3.375 GM 3.375 GM in DEXTROSE 5%-WATER - 50 ML IVPB SCH ×2 (02:23→10:25)
[2020-12-09] MEDS: DEXMEDETOMIDINE IN 0.9 % NACL 400 MCG/100 ML VIAL IVPB SCH (08:00)
[2020-12-09 08:13] LABS: HEMATOCRIT 36.1 % (35.4-49); HEMOGLOBIN 12.1 GM/dL (11.7-16.9); MCH 31.2 pg (25.7-33.7); MCHC 33.4 g/dl (32.0-35.9); MEAN CELL VOLUME 93.5 fl (80-96); MEAN PLT VOLUME 10.3 fl (7.5-11.1); PLATELET COUNT 87 K/MM3 (134-434); RBC 3.86 M/mm3 (4.00-5.60); RDW 17.3 % (11.9-15.9); WHITE BLOOD COUNT 9.3 K/mm3 (4.0-10.0)
[2020-12-09 08:29] LABS: CHLORIDE 103 mmol/L (98-107); SODIUM 141 mmol/L (136-145)
[2020-12-09 08:36] LABS: ANION GAP 6 MMOL/L (8-16); CO2 32 mmol/L (21-32); GLUCOSE,RANDOM 119 mg/dL (74-106)
[2020-12-09 08:37] LABS: BLOOD UREA NITROGEN 7.2 mg/dL (7-18)
[2020-12-09 08:38] LABS: CALCIUM 7.8 mg/dL (8.5-10.1); MAGNESIUM 1.7 mg/dL (1.8-2.4)
[2020-12-09 08:41] LABS: PHOSPHOROUS 2.2 mg/dL (2.5-4.9)
[2020-12-09 09:14] LABS: CREATININE < 0.2 mg/dL (0.55-1.3)
[2020-12-09] MEDS ORDERED: PIPERACILLIN/TAZOBACTAM 3.375 GM VIAL IVPB ONE (10:16)
[2020-12-09] MEDS ORDERED: DEXTROSE 5%-WATER - 50 ML IVPB ONE (10:16)
[2020-12-09] MEDS: MAGNESIUM OXIDE 400 MG TABLET (FP) NGT SCH (10:25)
[2020-12-09] MEDS: METOPROLOL TARTRATE 25 MG TABLET (FP) PO SCH ×3 (10:25→21:32)
[2020-12-09] MEDS: PANTOPRAZOLE SODIUM 40 MG VIAL IVPUSH SCH (10:25)
[2020-12-09] MEDS: methylPREDNISolone NA SUCC 40 MG/1 ML VIAL IVPB SCH (10:25)
[2020-12-09] MEDS: NOREPINEPHRINE D5W PREMIX 16,000 MCG/500 ML BAG IVPB SCH (16:53)
[2020-12-09] MEDS: LIDOCAINE PATCH REMOVAL MC SCH (21:57)
[2020-12-09] MEDS: CHLORHEXIDINE GLUCONATE 4% CLEANSER FOR DECOLONIZATION TP SCH (21:57)
[2020-12-09] MEDS: DEXTROSE 5%-LACTATED RINGERS 1,000 ML IV SCH (21:57)
[2020-12-10] MEDS: DEXMEDETOMIDINE IN 0.9 % NACL 400 MCG/100 ML VIAL IVPB SCH (06:22)
[2020-12-10 07:39] LABS: BASO % 0.2 % (0-2.0); EOS % 0.4 % (0-4.5); HEMATOCRIT 35.7 % (35.4-49); HEMOGLOBIN 11.9 GM/dL (11.7-16.9); LYMPH % 3.2 % (8-40); MCH 31.3 pg (25.7-33.7); MCHC 33.4 g/dl (32.0-35.9); MEAN CELL VOLUME 93.7 fl (80-96); MEAN PLT VOLUME 10.8 fl (7.5-11.1); MONO % 8.9 % (3.8-10.2); NEUT % 87.3 % (42.8-82.8); PLATELET COUNT 89 K/MM3 (134-434); RBC 3.81 M/mm3 (4.00-5.60); RDW 17.4 % (11.9-15.9); WHITE BLOOD COUNT 7.4 K/mm3 (4.0-10.0)
[2020-12-10 08:06] LABS: CHLORIDE 102 mmol/L (98-107); POTASSIUM 3.9 mmol/L (3.5-5.1); SODIUM 141 mmol/L (136-145)
[2020-12-10 08:11] LABS: ANION GAP 7 MMOL/L (8-16); BLOOD UREA NITROGEN 7.1 mg/dL (7-18); CALCIUM 8.3 mg/dL (8.5-10.1); CO2 32 mmol/L (21-32); GLUCOSE,RANDOM 101 mg/dL (74-106); MAGNESIUM 1.6 mg/dL (1.8-2.4)
[2020-12-10 08:15] LABS: PHOSPHOROUS 2.2 mg/dL (2.5-4.9)
[2020-12-10 08:20] LABS: CREATININE < 0.2 mg/dL (0.55-1.3)
[2020-12-10] MEDS: NOREPINEPHRINE D5W PREMIX 16,000 MCG/500 ML BAG IVPB SCH (08:48)
[2020-12-10] MEDS ORDERED: cefTRIAXone SODIUM 1 GM VIAL ONE (09:10)
[2020-12-10] MEDS ORDERED: PT OWN MED DRAWER 7, Y5N ONE ×2 (09:10→22:14)
[2020-12-10] MEDS ORDERED: DEXTROSE 5%-WATER - 50 ML IVPB ONE (09:11)
[2020-12-10] MEDS: CEFTRIAXONE 1 GM in DEXTROSE 5%-WATER - 50 ML IVPB SCH (09:22)
[2020-12-10] MEDS: METOPROLOL TARTRATE 25 MG TABLET (FP) PO SCH ×2 (09:23→22:19)
[2020-12-10] MEDS: MAGNESIUM OXIDE 400 MG TABLET (FP) NGT SCH (09:23)
[2020-12-10] MEDS: methylPREDNISolone NA SUCC 40 MG/1 ML VIAL IVPB SCH (09:23)
[2020-12-10] MEDS: PANTOPRAZOLE SODIUM 40 MG VIAL IVPUSH SCH (09:23)
[2020-12-10] MEDS: ENOXAPARIN NA (PORCINE) 60 MG/0.6 ML DISP.SYRIN SQ SCH (12:41)
[2020-12-10] MEDS: POLYETHYLENE GLYCOL 3350 119 GM BTL PO SCH (12:43)
[2020-12-10] MEDS ORDERED: MAGNESIUM 2GM/50ML STERILE WATER IVPB IVPB ONE (14:30)
[2020-12-10] MEDS ORDERED: LORazepam 2 MG/ML SDV VIAL IVPUSH ONE (18:35)
[2020-12-10] MEDS ORDERED: SODIUM CHLORIDE 0.9% 500 ML INFUS.BAG IV ONE (19:47)
[2020-12-10] MEDS: DEXTROSE 5%-LACTATED RINGERS 1,000 ML IV SCH (22:09)
[2020-12-10] MEDS: LIDOCAINE PATCH REMOVAL MC SCH (22:15)
[2020-12-10] MEDS: CHLORHEXIDINE GLUCONATE 4% CLEANSER FOR DECOLONIZATION TP SCH (22:21)
[2020-12-11] MEDS: ENOXAPARIN NA (PORCINE) 60 MG/0.6 ML DISP.SYRIN SQ SCH ×2 (01:30→13:37)
[2020-12-11 07:55] LABS: BASO % 0.3 % (0-2.0); EOS % 0.1 % (0-4.5); HEMATOCRIT 36.5 % (35.4-49); HEMOGLOBIN 12.2 GM/dL (11.7-16.9); MCH 31.1 pg (25.7-33.7); MCHC 33.5 g/dl (32.0-35.9); MEAN CELL VOLUME 92.8 fl (80-96); MEAN PLT VOLUME 10.7 fl (7.5-11.1); MONO % 16.4 % (3.8-10.2); NEUT % 79.2 % (42.8-82.8); PLATELET COUNT 119 K/MM3 (134-434); RBC 3.93 M/mm3 (4.00-5.60); RDW 17.5 % (11.9-15.9); WHITE BLOOD COUNT 6.1 K/mm3 (4.0-10.0)
[2020-12-11 08:08] LABS: CHLORIDE 103 mmol/L (98-107); POTASSIUM 3.9 mmol/L (3.5-5.1); SODIUM 139 mmol/L (136-145)
[2020-12-11 08:11] LABS: GLUCOSE,RANDOM 111 mg/dL (74-106)
[2020-12-11 08:13] LABS: BLOOD UREA NITROGEN 9.3 mg/dL (7-18); CALCIUM 8.1 mg/dL (8.5-10.1)
[2020-12-11 08:15] LABS: ANION GAP 3 MMOL/L (8-16); CO2 34 mmol/L (21-32); MAGNESIUM 1.8 mg/dL (1.8-2.4); PHOSPHOROUS 2.4 mg/dL (2.5-4.9)
[2020-12-11 08:20] LABS: CREATININE < 0.2 mg/dL (0.55-1.3)
[2020-12-11] MEDS: NOREPINEPHRINE D5W PREMIX 16,000 MCG/500 ML BAG IVPB SCH (08:42)
[2020-12-11] MEDS ORDERED: DEXTROSE 5%-WATER - 50 ML IVPB ONE (09:09)
[2020-12-11] MEDS ORDERED: cefTRIAXone SODIUM 1 GM VIAL ONE (09:09)
[2020-12-11] MEDS: CEFTRIAXONE 1 GM in DEXTROSE 5%-WATER - 50 ML IVPB SCH (09:13)
[2020-12-11] MEDS: methylPREDNISolone NA SUCC 40 MG/1 ML VIAL IVPB SCH (09:15)
[2020-12-11] MEDS: PANTOPRAZOLE SODIUM 40 MG VIAL IVPUSH SCH (09:18)
[2020-12-11] MEDS: POLYETHYLENE GLYCOL 3350 119 GM BTL PO SCH (09:18)
[2020-12-11] MEDS: MAGNESIUM OXIDE 400 MG TABLET (FP) NGT SCH (09:19)
[2020-12-11] MEDS: METOPROLOL TARTRATE 25 MG TABLET (FP) PO SCH ×4 (09:19→22:36)
[2020-12-11] MEDS ORDERED: ALBUTEROL SO4 0.5 % INH SOLN 2.5 MG/0.5 ML VIAL.NEB. NEB PRN (12:17)
[2020-12-11] MEDS ORDERED: methylPREDNISolone NA SUCC 40 MG/1 ML VIAL IVPB SCH (12:30)
[2020-12-11] MEDS ORDERED: POTASSIUM PHOSPHATE 30 MM in SODIUM CHLORIDE 250 ML IVPB ONE (14:00)
[2020-12-11] MEDS: FENTANYL NS IVPB 500 MCG/100 ML BAG IVPB SCH (18:00)
[2020-12-11] MEDS: DEXMEDETOMIDINE IN 0.9 % NACL 400 MCG/100 ML VIAL IVPB SCH ×2 (18:03→18:50)
[2020-12-11] MEDS: methylPREDNISolone NA SUCC 40 MG/1 ML VIAL IVPUSH SCH (18:08)
[2020-12-11] MEDS ORDERED: PT OWN MED DRAWER 7, Y5N ONE (18:43)
[2020-12-11] MEDS: DEXTROSE 5%-LACTATED RINGERS 1,000 ML IV SCH (22:33)
[2020-12-11] MEDS: CHLORHEXIDINE GLUCONATE 4% CLEANSER FOR DECOLONIZATION TP SCH (22:34)
[2020-12-11] MEDS: LIDOCAINE PATCH REMOVAL MC SCH (22:34)
[2020-12-12] MEDS: methylPREDNISolone NA SUCC 40 MG/1 ML VIAL IVPUSH SCH ×3 (02:50→18:19)
[2020-12-12 07:53] LABS: BASO % 0.1 % (0-2.0); HEMOGLOBIN 11.5 GM/dL (11.7-16.9); LYMPH % 4.8 % (8-40); MCH 30.8 pg (25.7-33.7); MEAN CELL VOLUME 93.4 fl (80-96); MEAN PLT VOLUME 10.6 fl (7.5-11.1); MONO % 10.4 % (3.8-10.2); NEUT % 84.7 % (42.8-82.8); PLATELET COUNT 107 K/MM3 (134-434); RBC 3.74 M/mm3 (4.00-5.60); RDW 17.4 % (11.9-15.9)
[2020-12-12 08:07] LABS: CHLORIDE 102 mmol/L (98-107); POTASSIUM 4.9 mmol/L (3.5-5.1); SODIUM 139 mmol/L (136-145)
[2020-12-12 08:08] LABS: CALCIUM 7.8 mg/dL (8.5-10.1)
[2020-12-12 08:09] LABS: ANION GAP 1 MMOL/L (8-16); BLOOD UREA NITROGEN 9.8 mg/dL (7-18); CO2 36 mmol/L (21-32); MAGNESIUM 1.8 mg/dL (1.8-2.4)
[2020-12-12 08:10] LABS: GLUCOSE,RANDOM 128 mg/dL (74-106)
[2020-12-12 08:12] LABS: PHOSPHOROUS 4.3 mg/dL (2.5-4.9)
[2020-12-12] MEDS: DEXMEDETOMIDINE IN 0.9 % NACL 400 MCG/100 ML VIAL IVPB SCH (08:41)
[2020-12-12 08:43] LABS: CREATININE < 0.2 mg/dL (0.55-1.3)
[2020-12-12] MEDS ORDERED: DEXTROSE 5%-WATER - 50 ML IVPB ONE (08:59)
[2020-12-12] MEDS ORDERED: cefTRIAXone SODIUM 1 GM VIAL ONE (08:59)
[2020-12-12] MEDS: POLYETHYLENE GLYCOL 3350 119 GM BTL PO SCH (09:24)
[2020-12-12] MEDS: MAGNESIUM OXIDE 400 MG TABLET (FP) NGT SCH (09:24)
[2020-12-12] MEDS: METOPROLOL TARTRATE 25 MG TABLET (FP) PO SCH ×2 (09:24→22:05)
[2020-12-12] MEDS: PANTOPRAZOLE SODIUM 40 MG VIAL IVPUSH SCH (09:24)
[2020-12-12] MEDS: CEFTRIAXONE 1 GM in DEXTROSE 5%-WATER - 50 ML IVPB SCH (09:25)
[2020-12-12 11:01] LABS: ANISOCYTOSIS 1+; MACROCYTOSIS 0; OVALOCYTE 1+; PLATELET ESTIMATE DECREASED
[2020-12-12] MEDS ORDERED: MIDAZOLAM HCL 5 MG/1 ML Single Dose Vial IVPUSH ONE (11:33)
[2020-12-12] MEDS ORDERED: MIDAZOLAM HCL 5 MG/1 ML Single Dose Vial ONE (11:36)
[2020-12-12] MEDS ORDERED: PROPOFOL 200 MG/20 ML VIAL IVPUSH ONE (11:44)
[2020-12-12] MEDS ORDERED: PROPOFOL 1,000,000 MCG/100 ML VIAL ONE (11:48)
[2020-12-12] MEDS ORDERED: ROCURONIUM BROMIDE 50 MG/5 ML VIAL IV ONE (11:49)
[2020-12-12] MEDS ORDERED: ROCURONIUM BROMIDE 100 MG/10 ML VIAL ONE (11:52)
[2020-12-12] MEDS: FENTANYL NS IVPB 500 MCG/100 ML BAG IVPB SCH (13:07)
[2020-12-12] MEDS: DEXTROSE 5%-LACTATED RINGERS 1,000 ML IV SCH (20:15)
[2020-12-12] MEDS: LIDOCAINE PATCH REMOVAL MC SCH (22:06)
[2020-12-12] MEDS: CHLORHEXIDINE GLUCONATE 4% CLEANSER FOR DECOLONIZATION TP SCH (22:06)
[2020-12-13] MEDS: ENOXAPARIN NA (PORCINE) 60 MG/0.6 ML DISP.SYRIN SQ SCH ×2 (00:57→13:00)
[2020-12-13] MEDS: methylPREDNISolone NA SUCC 40 MG/1 ML VIAL IVPUSH SCH ×3 (02:43→18:13)
[2020-12-13 07:31] LABS: BASO % 0.1 % (0-2.0); EOS % 0.1 % (0-4.5); HEMATOCRIT 35.1 % (35.4-49); HEMOGLOBIN 11.6 GM/dL (11.7-16.9); LYMPH % 3.4 % (8-40); MCH 30.7 pg (25.7-33.7); MEAN CELL VOLUME 93.1 fl (80-96); MONO % 8.6 % (3.8-10.2); NEUT % 87.8 % (42.8-82.8); PLATELET COUNT 109 K/MM3 (134-434); RBC 3.77 M/mm3 (4.00-5.60); RDW 17.1 % (11.9-15.9); WHITE BLOOD COUNT 3.6 K/mm3 (4.0-10.0)
[2020-12-13 07:47] LABS: CHLORIDE 101 mmol/L (98-107); POTASSIUM 4.4 mmol/L (3.5-5.1); SODIUM 137 mmol/L (136-145)
[2020-12-13 07:50] LABS: ANION GAP 1 MMOL/L (8-16); BLOOD UREA NITROGEN 10.2 mg/dL (7-18); CALCIUM 8.1 mg/dL (8.5-10.1); CO2 35 mmol/L (21-32); GLUCOSE,RANDOM 125 mg/dL (74-106); MAGNESIUM 1.8 mg/dL (1.8-2.4)
[2020-12-13 07:53] LABS: PHOSPHOROUS 3.8 mg/dL (2.5-4.9); SGOT/AST 6 U/L (15-37); SGPT/ALT 12 U/L (13-61)
[2020-12-13 07:54] LABS: BILIRUBIN,TOTAL 0.6 mg/dL (0.2-1); TOT PROT 4.2 g/dl (6.4-8.2)
[2020-12-13 07:56] LABS: ALK PHOS 49 U/L (45-117)
[2020-12-13 08:19] LABS: CREATININE < 0.2 mg/dL (0.55-1.3)
[2020-12-13] MEDS ORDERED: cefTRIAXone SODIUM 1 GM VIAL ONE (09:17)
[2020-12-13] MEDS ORDERED: DEXTROSE 5%-WATER - 50 ML IVPB ONE (09:18)
[2020-12-13] MEDS: CEFTRIAXONE 1 GM in DEXTROSE 5%-WATER - 50 ML IVPB SCH (09:31)
[2020-12-13] MEDS: PANTOPRAZOLE SODIUM 40 MG VIAL IVPUSH SCH (09:32)
[2020-12-13] MEDS: METOPROLOL TARTRATE 25 MG TABLET (FP) PO SCH ×2 (09:34→21:24)
[2020-12-13] MEDS: FENTANYL NS IVPB 500 MCG/100 ML BAG IVPB SCH (09:35)
[2020-12-13] MEDS: POLYETHYLENE GLYCOL 3350 119 GM BTL PO SCH (11:00)
[2020-12-13] MEDS: DEXTROSE 5%-LACTATED RINGERS 1,000 ML IV SCH (18:13)
[2020-12-13] MEDS: CHLORHEXIDINE GLUCONATE 4% CLEANSER FOR DECOLONIZATION TP SCH (21:24)
[2020-12-13] MEDS: LIDOCAINE PATCH REMOVAL MC SCH (21:24)
[2020-12-14] MEDS ORDERED: ACETAMINOPHEN 1000 MG/100 ML VIAL (NON FORMULARY) IVPB ONE (00:15)
[2020-12-14] MEDS: ENOXAPARIN NA (PORCINE) 60 MG/0.6 ML DISP.SYRIN SQ SCH ×3 (00:20→23:43)
[2020-12-14] MEDS ORDERED: ACETAMINOPHEN INJECTION 100 ML IVPB ONE (00:31)
[2020-12-14] MEDS: methylPREDNISolone NA SUCC 40 MG/1 ML VIAL IVPUSH SCH ×3 (01:31→17:24)
[2020-12-14] MEDS ORDERED: SCOPOLAMINE HYDROBROMIDE 1 PATCH PATCH.TD72 TD SCH (06:00)
[2020-12-14 07:33] LABS: BASO % 0.2 % (0-2.0); HEMATOCRIT 38.8 % (35.4-49); LYMPH % 3.8 % (8-40); MCH 31.1 pg (25.7-33.7); MCHC 33.5 g/dl (32.0-35.9); MEAN PLT VOLUME 10.6 fl (7.5-11.1); MONO % 9.9 % (3.8-10.2); NEUT % 86.1 % (42.8-82.8); PLATELET COUNT 175 K/MM3 (134-434); RBC 4.18 M/mm3 (4.00-5.60); RDW 17.1 % (11.9-15.9); WHITE BLOOD COUNT 4.5 K/mm3 (4.0-10.0)
[2020-12-14 07:48] LABS: CHLORIDE 102 mmol/L (98-107); POTASSIUM 4.2 mmol/L (3.5-5.1); SODIUM 140 mmol/L (136-145)
[2020-12-14 07:58] LABS: CALCIUM 8.5 mg/dL (8.5-10.1)
[2020-12-14 07:59] LABS: ALBUMIN 2.3 g/dl (3.4-5.0); ANION GAP 8 MMOL/L (8-16); BLOOD UREA NITROGEN 11.9 mg/dL (7-18); CO2 30 mmol/L (21-32); GLUCOSE,RANDOM 85 mg/dL (74-106)
[2020-12-14 08:02] LABS: SGOT/AST 6 U/L (15-37); SGPT/ALT 18 U/L (13-61)
[2020-12-14 08:04] LABS: BILIRUBIN,TOTAL 0.9 mg/dL (0.2-1); TOT PROT 4.8 g/dl (6.4-8.2)
[2020-12-14 08:05] LABS: ALK PHOS 63 U/L (45-117)
[2020-12-14 08:48] LABS: CREATININE < 0.2 mg/dL (0.55-1.3)
[2020-12-14] MEDS ORDERED: cefTRIAXone SODIUM 1 GM VIAL ONE (09:13)
[2020-12-14] MEDS ORDERED: DEXTROSE 5%-WATER - 50 ML IVPB ONE (09:14)
[2020-12-14] MEDS: POLYETHYLENE GLYCOL 3350 119 GM BTL PO SCH (09:31)
[2020-12-14] MEDS: CEFTRIAXONE 1 GM in DEXTROSE 5%-WATER - 50 ML IVPB SCH (09:32)
[2020-12-14] MEDS: PANTOPRAZOLE SODIUM 40 MG VIAL IVPUSH SCH (09:32)
[2020-12-14] MEDS: METOPROLOL TARTRATE 25 MG TABLET (FP) PO SCH ×2 (09:33→23:42)
[2020-12-14] MEDS: DEXTROSE 5%-LACTATED RINGERS 1,000 ML IV SCH (10:22)
[2020-12-14] MEDS ORDERED: PT OWN MED DRAWER 7, Y5N ONE (12:34)
[2020-12-14 14:17] VITALS: BMI 19.1
[2020-12-14] MEDS ORDERED: ALBUTEROL SO4 0.5 % INH SOLN 2.5 MG/0.5 ML VIAL.NEB. NEB PRN (19:33)
[2020-12-14] MEDS ORDERED: DEXTROSE 5%-LACTATED RINGERS 1,000 ML IV SCH (19:33)
[2020-12-14] MEDS ORDERED: LIDOCAINE PATCH REMOVAL MC SCH (22:00)
[2020-12-15] MEDS: methylPREDNISolone NA SUCC 40 MG/1 ML VIAL IVPUSH SCH ×3 (03:02→18:19)
[2020-12-15] MEDS: PANTOPRAZOLE SODIUM 40 MG VIAL IVPUSH SCH (10:59)
[2020-12-15] MEDS: METOPROLOL TARTRATE 25 MG TABLET (FP) PO SCH ×2 (10:59→22:25)
[2020-12-15] MEDS: ENOXAPARIN NA (PORCINE) 60 MG/0.6 ML DISP.SYRIN SQ SCH ×2 (11:57→23:38)
[2020-12-15 13:05] LABS: HEMOGLOBIN 12.3 GM/dL (11.7-16.9); MCH 30.5 pg (25.7-33.7); MCHC 32.3 g/dl (32.0-35.9); MEAN CELL VOLUME 94.6 fl (80-96); MEAN PLT VOLUME 10.2 fl (7.5-11.1); PLATELET COUNT 164 K/MM3 (134-434); RBC 4.02 M/mm3 (4.00-5.60); RDW 17.7 % (11.9-15.9); WHITE BLOOD COUNT 3.7 K/mm3 (4.0-10.0)
[2020-12-15 13:47] LABS: POTASSIUM 3.6 mmol/L (3.5-5.1)
[2020-12-15 13:49] LABS: ALBUMIN 2.3 g/dl (3.4-5.0)
[2020-12-15 13:50] LABS: CALCIUM 8.5 mg/dL (8.5-10.1)
[2020-12-15 13:51] LABS: BLOOD UREA NITROGEN 13.1 mg/dL (7-18)
[2020-12-15 13:54] LABS: CREATININE 0.3 mg/dL (0.55-1.3)
[2020-12-15 13:55] LABS: BILIRUBIN,TOTAL 0.7 mg/dL (0.2-1)
[2020-12-15 13:56] LABS: TOT PROT 4.8 g/dl (6.4-8.2)
[2020-12-16] MEDS: methylPREDNISolone NA SUCC 40 MG/1 ML VIAL IVPUSH SCH ×3 (01:53→18:03)
[2020-12-16 09:26] LABS: HEMATOCRIT 34.7 % (35.4-49); HEMOGLOBIN 11.7 GM/dL (11.7-16.9); MCH 31.2 pg (25.7-33.7); MCHC 33.6 g/dl (32.0-35.9); MEAN CELL VOLUME 92.9 fl (80-96); MEAN PLT VOLUME 10.3 fl (7.5-11.1); PLATELET COUNT 143 K/MM3 (134-434); RBC 3.74 M/mm3 (4.00-5.60); RDW 17.3 % (11.9-15.9); WHITE BLOOD COUNT 2.7 K/mm3 (4.0-10.0)
[2020-12-16 09:46] LABS: CHLORIDE 104 mmol/L (98-107); POTASSIUM 3.7 mmol/L (3.5-5.1); SODIUM 140 mmol/L (136-145)
[2020-12-16 09:55] LABS: ALBUMIN 2.2 g/dl (3.4-5.0); ANION GAP 6 MMOL/L (8-16); CALCIUM 8.2 mg/dL (8.5-10.1); CO2 30 mmol/L (21-32); GLUCOSE,RANDOM 85 mg/dL (74-106)
[2020-12-16 09:56] LABS: BLOOD UREA NITROGEN 10.2 mg/dL (7-18); MAGNESIUM 1.9 mg/dL (1.8-2.4)
[2020-12-16 09:58] LABS: PHOSPHOROUS 3.2 mg/dL (2.5-4.9); SGPT/ALT 32 U/L (13-61)
[2020-12-16 09:59] LABS: SGOT/AST 8 U/L (15-37)
[2020-12-16 10:00] LABS: BILIRUBIN,TOTAL 1.4 mg/dL (0.2-1); TOT PROT 4.5 g/dl (6.4-8.2)
[2020-12-16 10:01] LABS: ALK PHOS 71 U/L (45-117)
[2020-12-16] MEDS: PANTOPRAZOLE SODIUM 40 MG VIAL IVPUSH SCH (11:07)
[2020-12-16] MEDS: METOPROLOL TARTRATE 25 MG TABLET (FP) PO SCH ×2 (11:07→22:21)
[2020-12-16 11:17] LABS: CREATININE < 0.2 mg/dL (0.55-1.3)
[2020-12-16] MEDS: ENOXAPARIN NA (PORCINE) 60 MG/0.6 ML DISP.SYRIN SQ SCH (12:06)
[2020-12-17] MEDS: ENOXAPARIN NA (PORCINE) 60 MG/0.6 ML DISP.SYRIN SQ SCH ×3 (00:42→23:57)
[2020-12-17] MEDS: methylPREDNISolone NA SUCC 40 MG/1 ML VIAL IVPUSH SCH ×3 (01:54→18:38)
[2020-12-17] MEDS: METOPROLOL TARTRATE 25 MG TABLET (FP) PO SCH ×2 (10:30→21:06)
[2020-12-17] MEDS: PANTOPRAZOLE SODIUM 40 MG VIAL IVPUSH SCH (10:30)
[2020-12-17 10:58] LABS: HEMATOCRIT 36.3 % (35.4-49); LYMPH % 3.8 % (8-40); MCH 30.7 pg (25.7-33.7); MCHC 33.1 g/dl (32.0-35.9); MEAN CELL VOLUME 92.9 fl (80-96); MONO % 10.6 % (3.8-10.2); NEUT % 85.6 % (42.8-82.8); PLATELET COUNT 137 K/MM3 (134-434); RDW 17.6 % (11.9-15.9); WHITE BLOOD COUNT 3.2 K/mm3 (4.0-10.0)
[2020-12-17 11:27] LABS: POTASSIUM 3.6 mmol/L (3.5-5.1)
[2020-12-17 11:31] LABS: ALBUMIN 2.2 g/dl (3.4-5.0); BLOOD UREA NITROGEN 9.1 mg/dL (7-18); CALCIUM 8.5 mg/dL (8.5-10.1)
[2020-12-17 11:35] LABS: CREATININE 0.2 mg/dL (0.55-1.3)
[2020-12-17 11:36] LABS: BILIRUBIN,TOTAL 1.4 mg/dL (0.2-1); TOT PROT 4.3 g/dl (6.4-8.2)
[2020-12-17] MEDS ORDERED: FUROSEMIDE 40 MG/4 ML INJECTABLE VIAL IVPUSH ONE (16:39)
[2020-12-18] MEDS: methylPREDNISolone NA SUCC 40 MG/1 ML VIAL IVPUSH SCH ×2 (01:41→09:41)
[2020-12-18] MEDS: METOPROLOL TARTRATE 25 MG TABLET (FP) PO SCH ×2 (09:41→21:20)
[2020-12-18] MEDS: PANTOPRAZOLE SODIUM 40 MG VIAL IVPUSH SCH (09:52)
[2020-12-18] MEDS: FUROSEMIDE 40 MG/4 ML INJECTABLE VIAL IVPUSH SCH (12:17)
[2020-12-18] MEDS: ASPIRIN 81 MG CHEWABLE TABLETS PO SCH (12:18)
[2020-12-18] MEDS ORDERED: METHOTREXATE 2.5 MG TABLET PO SCH ×2 (17:15→19:42)
[2020-12-18] MEDS: predniSONE 20 MG TABLET (UD) PO SCH (21:19)
[2020-12-18] MEDS: FOLIC ACID 1 MG TABLET (FP) PO SCH (21:19)
[2020-12-19 10:27] LABS: BASO % 0.1 % (0-2.0); EOS % 0.1 % (0-4.5); HEMATOCRIT 39.1 % (35.4-49); HEMOGLOBIN 12.7 GM/dL (11.7-16.9); LYMPH % 3.4 % (8-40); MCH 30.4 pg (25.7-33.7); MCHC 32.4 g/dl (32.0-35.9); MEAN CELL VOLUME 93.8 fl (80-96); MEAN PLT VOLUME 10.3 fl (7.5-11.1); MONO % 9.8 % (3.8-10.2); NEUT % 86.6 % (42.8-82.8); PLATELET COUNT 142 K/MM3 (134-434); RBC 4.17 M/mm3 (4.00-5.60); RDW 17.8 % (11.9-15.9); WHITE BLOOD COUNT 7.3 K/mm3 (4.0-10.0)
[2020-12-19 10:51] LABS: POTASSIUM 3.7 mmol/L (3.5-5.1)
[2020-12-19 10:52] LABS: CALCIUM 8.6 mg/dL (8.5-10.1)
[2020-12-19 10:54] LABS: BLOOD UREA NITROGEN 10.8 mg/dL (7-18); MAGNESIUM 1.9 mg/dL (1.8-2.4)
[2020-12-19 10:55] LABS: ALBUMIN 2.6 g/dl (3.4-5.0)
[2020-12-19 10:57] LABS: CREATININE 0.4 mg/dL (0.55-1.3)
[2020-12-19 10:58] LABS: TOT PROT 5.2 g/dl (6.4-8.2)
[2020-12-19 10:59] LABS: BILIRUBIN,TOTAL 1.2 mg/dL (0.2-1)
[2020-12-19] MEDS: ASPIRIN 81 MG CHEWABLE TABLETS PO SCH (11:33)
[2020-12-19] MEDS: ENOXAPARIN NA (PORCINE) 40 MG/0.4 ML DISP.SYRIN SQ SCH (11:34)
[2020-12-19] MEDS: predniSONE 20 MG TABLET (UD) PO SCH ×2 (11:35→22:21)
[2020-12-19] MEDS: FOLIC ACID 1 MG TABLET (FP) PO SCH (11:35)
[2020-12-19] MEDS: METOPROLOL TARTRATE 25 MG TABLET (FP) PO SCH ×2 (11:36→22:21)
[2020-12-19] MEDS: FUROSEMIDE 40 MG/4 ML INJECTABLE VIAL IVPUSH SCH (11:37)
[2020-12-19] MEDS: PANTOPRAZOLE SODIUM 40 MG VIAL IVPUSH SCH (11:37)
[2020-12-19 12:13] LABS: ANISOCYTOSIS 0; MACROCYTOSIS 0; PLATELET ESTIMATE DECREASED
[2020-12-20 08:43] LABS: BASO % 0.1 % (0-2.0); HEMATOCRIT 33.7 % (35.4-49); HEMOGLOBIN 11.2 GM/dL (11.7-16.9); LYMPH % 1.5 % (8-40); MCH 31.1 pg (25.7-33.7); MCHC 33.2 g/dl (32.0-35.9); MEAN CELL VOLUME 93.8 fl (80-96); MEAN PLT VOLUME 10.9 fl (7.5-11.1); MONO % 5.7 % (3.8-10.2); NEUT % 92.7 % (42.8-82.8); PLATELET COUNT 121 K/MM3 (134-434); RBC 3.59 M/mm3 (4.00-5.60); RDW 17.4 % (11.9-15.9); WHITE BLOOD COUNT 5.9 K/mm3 (4.0-10.0)
[2020-12-20 08:58] LABS: POTASSIUM 3.5 mmol/L (3.5-5.1)
[2020-12-20 09:12] LABS: ALBUMIN 2.2 g/dl (3.4-5.0); BLOOD UREA NITROGEN 11.9 mg/dL (7-18); CALCIUM 8.2 mg/dL (8.5-10.1)
[2020-12-20 09:15] LABS: CREATININE 0.2 mg/dL (0.55-1.3); PHOSPHOROUS 2.3 mg/dL (2.5-4.9)
[2020-12-20 09:16] LABS: BILIRUBIN,TOTAL 0.9 mg/dL (0.2-1); TOT PROT 4.6 g/dl (6.4-8.2)
[2020-12-20] MEDS: PANTOPRAZOLE SODIUM 40 MG VIAL IVPUSH SCH (10:49)
[2020-12-20] MEDS: METOPROLOL TARTRATE 25 MG TABLET (FP) PO SCH (10:49)
[2020-12-20] MEDS: predniSONE 20 MG TABLET (UD) PO SCH ×2 (10:49→22:46)
[2020-12-20] MEDS: FUROSEMIDE 40 MG/4 ML INJECTABLE VIAL IVPUSH SCH (10:49)
[2020-12-20] MEDS: FOLIC ACID 1 MG TABLET (FP) PO SCH (10:49)
[2020-12-20] MEDS: ASPIRIN 81 MG CHEWABLE TABLETS PO SCH (10:50)
[2020-12-20 11:30] LABS: ANISOCYTOSIS 0; MACROCYTOSIS 0; PLATELET ESTIMATE DECREASED
[2020-12-20] MEDS: ENOXAPARIN NA (PORCINE) 40 MG/0.4 ML DISP.SYRIN SQ SCH (11:35)
[2020-12-20] MEDS ORDERED: ARTIFICIAL TEARS (POLYVINYL ALCOHOL) OPTH DROPS OU PRN (13:35)
[2020-12-20] MEDS ORDERED: NAPH,MB-DB/K PH,MBDB POWDER PACKET PO ONE (17:22)
[2020-12-20] MEDS: METOPROLOL TARTRATE 50 MG TABLET (FP) PO SCH (22:49)
[2020-12-21 06:09] LABS: ARTERIAL BLD GAS O2 SATURATION 98.9 mmHg (95-98); ARTERIAL BLOOD GAS BASE EXCESS 9.8 mmol/L (-2-2); ARTERIAL BLOOD GAS PO2 143.6 mmHg (80-100); ARTERIAL BLOOD GAS pH 7.464 (7.350-7.450)
[2020-12-21 06:10] LABS: ALLENS TEST POSITIVE
[2020-12-21 06:11] LABS: VENT MODE SIMV/PSV; VENT RATE 6
[2020-12-21] MEDS: predniSONE 20 MG TABLET (UD) PO SCH (09:15)
[2020-12-21] MEDS: ENOXAPARIN NA (PORCINE) 40 MG/0.4 ML DISP.SYRIN SQ SCH (09:15)
[2020-12-21] MEDS: METOPROLOL TARTRATE 50 MG TABLET (FP) PO SCH ×2 (09:15→09:20)
[2020-12-21] MEDS: FOLIC ACID 1 MG TABLET (FP) PO SCH (09:15)
[2020-12-21] MEDS: ASPIRIN 81 MG CHEWABLE TABLETS PO SCH (09:15)
[2020-12-21] MEDS: FUROSEMIDE 40 MG/4 ML INJECTABLE VIAL IVPUSH SCH (09:15)
[2020-12-21] MEDS ORDERED: PANTOPRAZOLE 40 MG TABLET PO SCH (10:00)
[2020-12-21] MEDS ORDERED: ACETAMINOPHEN 1000 MG/100 ML VIAL (NON FORMULARY) IVPB ONE (14:16)
[2020-12-21 14:30] VITALS: BP 102/67; PULSE 66; TEMP 98.2
[2020-12-21 15:54] LABS: HEMOGLOBIN 11.9 GM/dL (11.7-16.9); MCH 30.9 pg (25.7-33.7); MCHC 32.9 g/dl (32.0-35.9); MEAN CELL VOLUME 93.8 fl (80-96); PLATELET COUNT 134 K/MM3 (134-434); RBC 3.84 M/mm3 (4.00-5.60); RDW 17.4 % (11.9-15.9); WHITE BLOOD COUNT 7.2 K/mm3 (4.0-10.0)
[2020-12-21 16:16] LABS: POTASSIUM 4.1 mmol/L (3.5-5.1)
[2020-12-21 16:18] LABS: BLOOD UREA NITROGEN 21.1 mg/dL (7-18); CALCIUM 8.7 mg/dL (8.5-10.1)
[2020-12-21 16:19] LABS: MAGNESIUM 1.8 mg/dL (1.8-2.4)
[2020-12-21 16:21] LABS: CREATININE 0.2 mg/dL (0.55-1.3)
[2020-12-21] MEDS ORDERED: NAPH,MB-DB/K PH,MBDB POWDER PACKET PO ONE (16:55)
[2020-12-21] MEDS ORDERED: MAGNESIUM OXIDE 400 MG TABLET (FP) PO ONE (16:55)
[2020-12-21] MEDS ORDERED: METOPROLOL TARTRATE 50 MG TABLET (FP) PO SCH (22:00)
[2020-12-21] MEDS ORDERED: ATORVASTATIN CA 10 MG TABLET (FP) PO SCH (22:00)
== END 2020-12-21 17:18 | DRG 4 ==
LOC: JER 17:20 → JERBED 17:47 → JICU 21:53 → J5S 12-14 18:54
PROVIDERS: ADMIT Internal Medicine Pulmonary Disease; ATTEND Internal Medicine
PROC: 0DH673Z Insertion of Infusion Device into Stomach, Via Natural or Artificial Opening (ICD-10-PCS; 2020-12-03)
PROC: 0BH17EZ Insertion of Endotracheal Airway into Trachea, Via Natural or Artificial Opening (ICD-10-PCS; 2020-12-03)
PROC: 0CHY7BZ Insertion of Airway into Mouth and Throat, Via Natural or Artificial Opening (ICD-10-PCS; principal; 2020-12-06)
PROC: 5A1955Z Respiratory Ventilation, Greater than 96 Consecutive Hours (ICD-10-PCS; 2020-12-06)
PROC: 05HM33Z Insertion of Infusion Device into Right Internal Jugular Vein, Percutaneous Approach (ICD-10-PCS; 2020-12-06)
PROC: B543ZZA Ultrasonography of Right Jugular Veins, Guidance (ICD-10-PCS; 2020-12-06)
PROC: 0DH67UZ Insertion of Feeding Device into Stomach, Via Natural or Artificial Opening (ICD-10-PCS; 2020-12-07)
PROC: 3E0G76Z Introduction of Nutritional Substance into Upper GI, Via Natural or Artificial Opening (ICD-10-PCS; 2020-12-07)
PROC: 0B113F4 Bypass Trachea to Cutaneous with Tracheostomy Device, Percutaneous Approach (ICD-10-PCS; 2020-12-12)
PROC: 0BJ08ZZ Inspection of Tracheobronchial Tree, Via Natural or Artificial Opening Endoscopic (ICD-10-PCS; 2020-12-12)
DX: J96.01 Acute respiratory failure with hypoxia (principal); M33.22 Polymyositis with myopathy; R41.82 Altered mental status, unspecified; I11.0 Hypertensive heart disease with heart failure; N39.0 Urinary tract infection, site not specified; A41.89 Other specified sepsis; R65.21 Severe sepsis with septic shock; I50.32 Chronic diastolic (congestive) heart failure; M32.9 Systemic lupus erythematosus, unspecified; T17.890A Other foreign object in other parts of respiratory tract causing asphyxiation, initial encounter; J98.11 Atelectasis; I71.9 Aortic aneurysm of unspecified site, without rupture; E87.6 Hypokalemia; I27.20 Pulmonary hypertension, unspecified; M33.21 Polymyositis with respiratory involvement; J90 Pleural effusion, not elsewhere classified; I48.91 Unspecified atrial fibrillation; R00.1 Bradycardia, unspecified; R73.9 Hyperglycemia, unspecified; M81.8 Other osteoporosis without current pathological fracture; E83.42 Hypomagnesemia; I42.8 Other cardiomyopathies; M81.0 Age-related osteoporosis without current pathological fracture; I24.8 Other forms of acute ischemic heart disease; B96.1 Klebsiella pneumoniae [K. pneumoniae] as the cause of diseases classified elsewhere; I46.9 Cardiac arrest, cause unspecified; D69.6 Thrombocytopenia, unspecified; R00.0 Tachycardia, unspecified; R64 Cachexia; Z68.1 Body mass index [BMI] 19.9 or less, adult; Z99.3 Dependence on wheelchair
CPT/HCPCS: 31500; 36415; 36600; 70450-TC; 71045-TC-FY; 71250-TC; 74230-TC-FY; 80048; 80053; 80061; 80307; 81003; 82248; 82550; 82728; 82803; 82962; 83605; 83615; 83721; 83735; 83880; 84100; 84443; 84484; 85025; 85027; 85379; 85610; 85651; 85730; 86038; 86140; 86160; 86225; 87040; 87086; 87186; 87804; 92611-GN; 93005; 93010; 93306-TC; 93970-TC; 93971; 94002; 94640; 94660; 97162-GP; 99291; 99292; C9803; J0131; J8610; U0003

== ENCOUNTER 2021-01-03 16:24 | Inpatient (IN) | payer OTHER ==
[2021-01-03] MEDS ORDERED: SODIUM CHLORIDE 1,470 ML IV ONE (16:57)
[2021-01-03 17:59] LABS: VENOUS BASE EXCESS 2.6 mmol/L (-2-2); VENOUS O2 SATURATION 41.9 % (70-80); VENOUS PCO2 48.7 mmHg (38-52); VENOUS PH 7.38 (7.310-7.410)
[2021-01-03 18:02] LABS: BASO % 0.8 % (0-2.0); EOS % 0.9 % (0-4.5); HEMATOCRIT 26.9 % (35.4-49); HEMOGLOBIN 8.6 GM/dL (11.7-16.9); LYMPH % 20.3 % (8-40); MCH 30.7 pg (25.7-33.7); MEAN PLT VOLUME 9.7 fl (7.5-11.1); MONO % 4.4 % (3.8-10.2); NEUT % 73.6 % (42.8-82.8); RDW 17.7 % (11.9-15.9)
[2021-01-03] MEDS ORDERED: VANCOMYCIN 1,000 MG in DEXTROSE 5%-WATER - 250 ML IVPB ONE (18:03)
[2021-01-03] MEDS ORDERED: PIPERACILLIN/TAZOB 3.375 GM 3.375 GM in DEXTROSE 5%-WATER - 50 ML IVPB ONE (18:03)
[2021-01-03] MEDS ORDERED: FLUCONAZOLE 200 MG/D5W 100 ML IVPB ONE (18:05)
[2021-01-03 18:08] LABS: INR 1.3 (0.83-1.09); PROTHROMBIN TIME (PATIENT) 15.6 SEC (9.7-13.0)
[2021-01-03 18:11] LABS: ACTIVATED PTT 22.2 SECONDS (25.2-36.5)
[2021-01-03 18:12] LABS: WHITE BLOOD COUNT 0.6 K/mm3 (4.0-10.0)
[2021-01-03 18:13] LABS: PLATELET COUNT 40 K/MM3 (134-434)
[2021-01-03 18:21] LABS: POTASSIUM 3.3 mmol/L (3.5-5.1)
[2021-01-03 18:24] LABS: ALBUMIN 2.6 g/dl (3.4-5.0); BLOOD UREA NITROGEN 36.5 mg/dL (7-18); CALCIUM 8.9 mg/dL (8.5-10.1)
[2021-01-03 18:27] LABS: CREATININE 0.2 mg/dL (0.55-1.3)
[2021-01-03 18:29] LABS: BILIRUBIN,TOTAL 2.7 mg/dL (0.2-1); TOT PROT 5.7 g/dl (6.4-8.2)
[2021-01-03] MEDS ORDERED: CEFEPIME HCL/D5W 2 GM/50 ML BAG IVPB ONE (18:29)
[2021-01-03 18:38] LABS: ANISOCYTOSIS 2+; MACROCYTOSIS 0; OVALOCYTE 2+; PLATELET ESTIMATE DECREASED; TARGET CELLS 1+
[2021-01-03] MEDS ORDERED: CEFEPIME 2 GM/100 ML BAG IVPB ONE (18:38)
[2021-01-03] MEDS ORDERED: METOPROLOL TARTRATE 5 MG/5 ML VIAL IVPUSH ONE (19:19)
[2021-01-03] MEDS ORDERED: SODIUM CHLORIDE 0.9% 500 ML INFUS.BAG IV ONE (19:29)
[2021-01-03] MEDS ORDERED: METOPROLOL TARTRATE 5 MG/5 ML VIAL ONE (19:35)
[2021-01-03 19:55] LABS: EPI CELLS 33 /uL (0-25.1); HYALINE CASTS 73 /uL (0-3.1); URINE APPEARANCE TURBID; URINE BILIRUBIN 2+ (NEGATIVE); URINE COLOR ORANGE; URINE GLUCOSE (UA) NEGATIVE (NEGATIVE); URINE KETONE TRACE (NEGATIVE); URINE LEUK ESTERASE 2+ (NEGATIVE); URINE NITRITE POSITIVE (NEGATIVE); URINE PROTEIN 2+ (NEGATIVE); URINE RBC 34 /uL (0-23.9); URINE WBC 416 /uL (0-25.8)
[2021-01-03] MEDS ORDERED: TBO-FILGRASTIM 300 MCG/0.5 ML DISP.SYRINGE SQ ONE (21:33)
[2021-01-03 21:37] LABS: URINE BACTERIA 418.7 /uL (0-1359)
[2021-01-03 21:56] LABS: LACTIC ACID 2.5 mmol/L (0.4-2.0)
[2021-01-03] MEDS ORDERED: POTASSIUM CHLORIDE ORAL LIQUID 20 MEQ/15 ML PO ONE (22:00)
[2021-01-03] MEDS ORDERED: CEFEPIME 2 GM in DEXTROSE 5%-WATER 2 GM/100 ML BAG IVPB SCH (22:00)
[2021-01-03] MEDS ORDERED: CEFEPIME HCL/D5W 2 GM/50 ML BAG IVPB SCH (22:00)
[2021-01-03] MEDS ORDERED: SODIUM CHLORIDE 1,000 ML IV SCH (22:15)
[2021-01-03] MEDS ORDERED: ACETAMINOPHEN 1000 MG/100 ML VIAL (NON FORMULARY) IVPB ONE (22:17)
[2021-01-03] MEDS ORDERED: FLUCONAZOLE 200 MG/NS 100 ML IVPB ONE (22:30)
[2021-01-03] MEDS: CEFEPIME 1 GM in DEXTROSE 5%-WATER 1 GM/100 ML BAG IVPB SCH (22:56)
[2021-01-03] MEDS ORDERED: VANCOMYCIN 1 GM in D5W (PRE-DOCKED) 1,000 MG/250 ML IVPB SCH (22:58)
[2021-01-04] MEDS ORDERED: VANCOMYCIN 1 GM in D5W (PRE-DOCKED) 1,000 MG/250 ML IVPB SCH ×2 (00:30→10:00)
[2021-01-04] MEDS: KCL 10 MEQ IVPB 10 MEQ/100 ML INFUS.BAG IVPB SCH ×6 (00:38→17:00)
[2021-01-04] MEDS ORDERED: SODIUM CHLORIDE 0.9% 500 ML INFUS.BAG IV ONE (01:44)
[2021-01-04] MEDS: CEFEPIME 1 GM in DEXTROSE 5%-WATER 1 GM/100 ML BAG IVPB SCH ×3 (02:56→20:15)
[2021-01-04] MEDS: MAG HYDROX/ALH/SMC/DPHA/LIDO 240 ML MOUTHWASH MM SCH ×4 (02:56→19:53)
[2021-01-04] MEDS: FAMOTIDINE 20 MG/50 ML IVPB 20 MG/50 ML MG IVPB SCH ×3 (05:00→21:38)
[2021-01-04 07:11] LABS: EOS % 9.9 % (0-4.5); HEMATOCRIT 15.7 % (35.4-49); LYMPH % 27.1 % (8-40); MCHC 32.8 g/dl (32.0-35.9); MEAN CELL VOLUME 97.3 fl (80-96); MONO % 9.5 % (3.8-10.2); NEUT % 53.5 % (42.8-82.8); RBC 1.61 M/mm3 (4.00-5.60); RDW 18.4 % (11.9-15.9)
[2021-01-04 07:30] LABS: HEMOGLOBIN 5.2 GM/dL (11.7-16.9); WHITE BLOOD COUNT 0.1 K/mm3 (4.0-10.0)
[2021-01-04 07:31] LABS: PLATELET COUNT 19 K/MM3 (134-434)
[2021-01-04] MEDS ORDERED: METOPROLOL TARTRATE 5 MG/5 ML VIAL IVPUSH ONE (07:54)
[2021-01-04] MEDS ORDERED: CEFEPIME HCL 1 GM VIAL (RESTRICTED TO ID) ONE (09:15)
[2021-01-04] MEDS ORDERED: DEXTROSE 5%-WATER 100 ML IVPB ONE ×3 (09:15→18:17)
[2021-01-04] MEDS: METOPROLOL TARTRATE 25 MG TABLET (FP) PO SCH ×2 (09:35→21:38)
[2021-01-04] MEDS: FOLIC ACID 1 MG TABLET (FP) PO SCH (09:35)
[2021-01-04 09:38] LABS: ANISOCYTOSIS 0; MACROCYTOSIS 0; PLATELET ESTIMATE DECREASED
[2021-01-04] MEDS ORDERED: ENOXAPARIN NA (PORCINE) 40 MG/0.4 ML DISP.SYRIN SQ SCH (10:00)
[2021-01-04 10:54] LABS: BASO % 0.6 % (0-2.0); EOS % 7.5 % (0-4.5); HEMATOCRIT 19.7 % (35.4-49); MCH 31.5 pg (25.7-33.7); MCHC 32.5 g/dl (32.0-35.9); MEAN CELL VOLUME 96.8 fl (80-96); MEAN PLT VOLUME 8.8 fl (7.5-11.1); MONO % 9.7 % (3.8-10.2); NEUT % 26.2 % (42.8-82.8); RBC 2.03 M/mm3 (4.00-5.60); RDW 18.1 % (11.9-15.9)
[2021-01-04 11:00] LABS: HEMOGLOBIN 6.4 GM/dL (11.7-16.9); PLATELET COUNT 17 K/MM3 (134-434); WHITE BLOOD COUNT 0.3 K/mm3 (4.0-10.0)
[2021-01-04] MEDS: MUPIROCIN 2% TOPICAL OINTMENT FOR DECOLONIZATION NS SCH ×2 (11:00→21:21)
[2021-01-04 11:17] LABS: CHLORIDE 108 mmol/L (98-107); SODIUM 136 mmol/L (136-145)
[2021-01-04 11:19] LABS: BLOOD UREA NITROGEN 27.9 mg/dL (7-18); CO2 23 mmol/L (21-32); MAGNESIUM 1.7 mg/dL (1.8-2.4)
[2021-01-04 11:21] LABS: ALBUMIN 1.4 g/dl (3.4-5.0); ANION GAP 6 MMOL/L (8-16); CALCIUM 7.3 mg/dL (8.5-10.1)
[2021-01-04 11:22] LABS: CREATININE 0.2 mg/dL (0.55-1.3); SGPT/ALT 23 U/L (13-61)
[2021-01-04 11:23] LABS: PHOSPHOROUS 2.3 mg/dL (2.5-4.9); SGOT/AST 3 U/L (15-37)
[2021-01-04 11:24] LABS: BILIRUBIN,TOTAL 1.2 mg/dL (0.2-1); TOT PROT 3.8 g/dl (6.4-8.2)
[2021-01-04 11:26] LABS: ALK PHOS 66 U/L (45-117)
[2021-01-04 11:27] LABS: GLUCOSE,RANDOM 415 mg/dL (74-106); POTASSIUM 2.9 mmol/L (3.5-5.1)
[2021-01-04] MEDS: VANCOMYCIN 750 MG in DEXTROSE 5%-WATER - 250 ML IVPB SCH (12:34)
[2021-01-04 12:35] LABS: ANISOCYTOSIS 0; MACROCYTOSIS 1+; PLATELET ESTIMATE DECREASED
[2021-01-04] MEDS ORDERED: MAGNESIUM SULF 50% (8.12 MEQ/2 ML-1 GM VIAL) IVPB ONE (12:45)
[2021-01-04] MEDS ORDERED: MEROPENEM 1 GM VIAL (RESTRICTED TO ID) IVPB ONE ×2 (13:12→18:17)
[2021-01-04] MEDS: MEROPENEM 1 GM in DEXTROSE 5%-WATER 100 ML IVPB SCH ×2 (13:20→18:34)
[2021-01-04] MEDS ORDERED: PT OWN MED DRAWER 7, Y5N ONE ×2 (14:46→18:30)
[2021-01-04 15:13] LABS: ALBUMIN 2.1 g/dl (3.4-5.0); ANION GAP 10 MMOL/L (8-16); BLOOD UREA NITROGEN 26.7 mg/dL (7-18); CALCIUM 8.6 mg/dL (8.5-10.1); CHLORIDE 112 mmol/L (98-107); CO2 23 mmol/L (21-32); GLUCOSE,RANDOM 69 mg/dL (74-106); SODIUM 145 mmol/L (136-145)
[2021-01-04 15:15] LABS: SGPT/ALT 34 U/L (13-61)
[2021-01-04 15:16] LABS: BILIRUBIN,TOTAL 1.8 mg/dL (0.2-1); CREATININE < 0.2 mg/dL (0.55-1.3); POTASSIUM 2.7 mmol/L (3.5-5.1); SGOT/AST 4 U/L (15-37); TOT PROT 4.9 g/dl (6.4-8.2)
[2021-01-04 15:17] LABS: ALK PHOS 98 U/L (45-117)
[2021-01-04] MEDS: ACYCLOVIR INJECTION 250 MG in DEXTROSE 5%-WATER - 100 ML IVPB SCH ×2 (16:00→18:34)
[2021-01-04] MEDS: FLUCONAZOLE 100 MG/NS 50 ML IVPB SCH (16:45)
[2021-01-04] MEDS ORDERED: DEXTROSE 50%-WATER - 25 GM/50 ML VIAL IVPUSH ONE ×2 (16:55→17:41)
[2021-01-04] MEDS ORDERED: ACETAMINOPHEN 325 MG TABLET (FP) PO PRN (16:56)
[2021-01-04] MEDS ORDERED: DEXTROSE 50%-WATER 25 GM/50 ML DISP.SYRIN ONE ×2 (16:57→17:40)
[2021-01-04] MEDS ORDERED: methylPREDNISolone NA SUCC 1000 MG/8 ML VIAL IVPB ONE (17:46)
[2021-01-04] MEDS: SODIUM CHLORIDE 0.9%/KCL 20 MEQ/1,000 ML INFUS.BAG IV SCH (18:34)
[2021-01-04] MEDS ORDERED: TBO-FILGRASTIM 300 MCG/0.5 ML DISP.SYRINGE SQ ONE (19:55)
[2021-01-04 20:07] LABS: HEMATOCRIT 23.6 % (35.4-49); HEMOGLOBIN 7.6 GM/dL (11.7-16.9); MCH 30.6 pg (25.7-33.7); MCHC 32.1 g/dl (32.0-35.9); MEAN CELL VOLUME 95.1 fl (80-96); MEAN PLT VOLUME 9.4 fl (7.5-11.1); RBC 2.48 M/mm3 (4.00-5.60); RDW 17.9 % (11.9-15.9)
[2021-01-04 20:12] LABS: WHITE BLOOD COUNT 0.1 K/mm3 (4.0-10.0)
[2021-01-04 20:13] LABS: ADD RBC MORPHOLOGY YES; PLATELET COUNT 16 K/MM3 (134-434)
[2021-01-04 20:25] LABS: POTASSIUM 3.3 mmol/L (3.5-5.1)
[2021-01-04 20:27] LABS: CALCIUM 7.9 mg/dL (8.5-10.1)
[2021-01-04 20:28] LABS: BLOOD UREA NITROGEN 20.8 mg/dL (7-18); MAGNESIUM 2.3 mg/dL (1.8-2.4)
[2021-01-04 20:31] LABS: CREATININE 0.2 mg/dL (0.55-1.3)
[2021-01-04 20:32] LABS: BILIRUBIN,TOTAL 1.7 mg/dL (0.2-1)
[2021-01-04 20:33] LABS: TOT PROT 4.8 g/dl (6.4-8.2)
[2021-01-04] MEDS: CHLORHEXIDINE GLUCONATE 4% CLEANSER FOR DECOLONIZATION TP SCH (21:21)
[2021-01-05 00:02] LABS: OVALOCYTE 1+
[2021-01-05 00:03] LABS: PLATELET ESTIMATE SIGNIFICANT DECREASE
[2021-01-05 00:08] LABS: ANISOCYTOSIS 1+; MACROCYTOSIS 1+
[2021-01-05] MEDS ORDERED: LIDOCAINE VISCOUS 2% ORAL/TOP 20 ML UNIT-DOSE CUP MM ONE (01:00)
[2021-01-05] MEDS: MAG HYDROX/ALH/SMC/DPHA/LIDO 240 ML MOUTHWASH MM SCH ×4 (01:30→18:39)
[2021-01-05] MEDS: VANCOMYCIN 750 MG in DEXTROSE 5%-WATER - 250 ML IVPB SCH ×2 (01:39→13:42)
[2021-01-05] MEDS ORDERED: DEXTROSE 5%-WATER 100 ML IVPB ONE ×3 (02:25→18:36)
[2021-01-05] MEDS ORDERED: MEROPENEM 1 GM VIAL (RESTRICTED TO ID) IVPB ONE ×3 (02:25→18:36)
[2021-01-05] MEDS ORDERED: PT OWN MED DRAWER 7, Y5N ONE ×5 (02:25→18:37)
[2021-01-05] MEDS: ACYCLOVIR INJECTION 250 MG in DEXTROSE 5%-WATER - 100 ML IVPB SCH ×3 (02:38→18:46)
[2021-01-05] MEDS: MEROPENEM 1 GM in DEXTROSE 5%-WATER 100 ML IVPB SCH ×3 (02:38→18:45)
[2021-01-05] MEDS: SODIUM CHLORIDE 0.9%/KCL 20 MEQ/1,000 ML INFUS.BAG IV SCH ×2 (06:06→23:12)
[2021-01-05] MEDS ORDERED: METOPROLOL TARTRATE 5 MG/5 ML VIAL IVPUSH ONE ×2 (06:23→15:07)
[2021-01-05] MEDS ORDERED: INSULIN (NOVOLOG) ASPART 100 UNITS/ML 10ML VIAL ONE (06:44)
[2021-01-05] MEDS ORDERED: ACETAMINOPHEN 1000 MG/100 ML VIAL (NON FORMULARY) IVPB PRN (09:06)
[2021-01-05] MEDS: FAMOTIDINE 20 MG/50 ML IVPB 20 MG/50 ML MG IVPB SCH ×2 (10:48→22:30)
[2021-01-05 11:00] LABS: HEMATOCRIT 31.9 % (35.4-49); HEMOGLOBIN 10.6 GM/dL (11.7-16.9); MCHC 33.3 g/dl (32.0-35.9); MEAN CELL VOLUME 89.8 fl (80-96); MEAN PLT VOLUME 9.2 fl (7.5-11.1); PLATELET COUNT 46 K/MM3 (134-434); RBC 3.55 M/mm3 (4.00-5.60); RDW 19.5 % (11.9-15.9)
[2021-01-05 11:10] LABS: WHITE BLOOD COUNT 1.1 K/mm3 (4.0-10.0)
[2021-01-05 11:21] LABS: POTASSIUM 4.6 mmol/L (3.5-5.1)
[2021-01-05 11:26] LABS: BLOOD UREA NITROGEN 17.1 mg/dL (7-18); CALCIUM 8.6 mg/dL (8.5-10.1)
[2021-01-05 11:27] LABS: ALBUMIN 2.2 g/dl (3.4-5.0); MAGNESIUM 2.3 mg/dL (1.8-2.4)
[2021-01-05 11:30] LABS: CREATININE 0.2 mg/dL (0.55-1.3)
[2021-01-05 11:31] LABS: TOT PROT 5.5 g/dl (6.4-8.2)
[2021-01-05] MEDS: FOLIC ACID 1 MG TABLET (FP) PO SCH ×2 (11:49→19:45)
[2021-01-05] MEDS: METOPROLOL TARTRATE 25 MG TABLET (FP) PO SCH ×2 (11:50→19:45)
[2021-01-05] MEDS: COLLAGENASE CLOSTRIDIUM HIST. 30 GRAMS TUBE TP SCH (11:50)
[2021-01-05] MEDS: MUPIROCIN 2% TOPICAL OINTMENT FOR DECOLONIZATION NS SCH ×2 (13:16→22:30)
[2021-01-05] MEDS: FLUCONAZOLE 100 MG/NS 50 ML IVPB SCH (13:16)
[2021-01-05] MEDS ORDERED: SODIUM CHLORIDE 500 ML IV STA (13:25)
[2021-01-05] MEDS ORDERED: METOPROLOL TARTRATE 5 MG/5 ML VIAL IVPUSH PRN (14:00)
[2021-01-05 15:46] LABS: ANISOCYTOSIS 2+; MACROCYTOSIS 0; OVALOCYTE 2+; PLATELET ESTIMATE DECREASED
[2021-01-05] MEDS ORDERED: SODIUM CHLORIDE 0.9% 500 ML INFUS.BAG IV ONE (21:56)
[2021-01-05] MEDS ORDERED: POTASSIUM PHOSPHATE 15 MM in DEXTROSE 5%-WATER - 100 ML IVPB ONE (22:26)
[2021-01-05] MEDS: CHLORHEXIDINE GLUCONATE 4% CLEANSER FOR DECOLONIZATION TP SCH (22:30)
[2021-01-06] MEDS ORDERED: PT OWN MED DRAWER 7, Y5N ONE ×6 (00:30→22:18)
[2021-01-06] MEDS: VANCOMYCIN 750 MG in DEXTROSE 5%-WATER - 250 ML IVPB SCH ×2 (00:40→12:45)
[2021-01-06] MEDS ORDERED: DEXTROSE 5%-WATER 100 ML IVPB ONE ×3 (01:20→09:18)
[2021-01-06] MEDS ORDERED: MEROPENEM 1 GM VIAL (RESTRICTED TO ID) IVPB ONE ×3 (01:20→09:17)
[2021-01-06] MEDS: MEROPENEM 1 GM in DEXTROSE 5%-WATER 100 ML IVPB SCH ×2 (01:45→09:12)
[2021-01-06] MEDS: ACYCLOVIR INJECTION 250 MG in DEXTROSE 5%-WATER - 100 ML IVPB SCH ×3 (02:24→17:33)
[2021-01-06] MEDS: METOPROLOL TARTRATE 5 MG/5 ML VIAL IVPUSH PRN ×3 (02:33→14:15)
[2021-01-06] MEDS: MAG HYDROX/ALH/SMC/DPHA/LIDO 240 ML MOUTHWASH MM SCH ×3 (05:48→17:56)
[2021-01-06] MEDS: FOLIC ACID 1 MG TABLET (FP) PO SCH (09:02)
[2021-01-06] MEDS: FAMOTIDINE 20 MG/50 ML IVPB 20 MG/50 ML MG IVPB SCH ×2 (09:10→21:56)
[2021-01-06] MEDS: FLUCONAZOLE 100 MG/NS 50 ML IVPB SCH (09:11)
[2021-01-06] MEDS: LIDOCAINE VISCOUS 2% ORAL/TOP 20 ML UNIT-DOSE CUP MM PRN ×2 (09:12→17:34)
[2021-01-06] MEDS: MUPIROCIN 2% TOPICAL OINTMENT FOR DECOLONIZATION NS SCH ×2 (09:21→21:55)
[2021-01-06] MEDS ORDERED: metoPROLOL SUCCINATE 25 MG TAB.SR.24H (FP) PO SCH (10:30)
[2021-01-06] MEDS: COLLAGENASE CLOSTRIDIUM HIST. 30 GRAMS TUBE TP SCH (11:17)
[2021-01-06] MEDS: METOPROLOL TARTRATE 25 MG TABLET (FP) PO SCH ×2 (12:00→21:56)
[2021-01-06] MEDS ORDERED: ACETAMINOPHEN 1000 MG/100 ML VIAL (NON FORMULARY) IVPB PRN ×2 (13:37→13:40)
[2021-01-06] MEDS: SODIUM CHLORIDE 0.9%/KCL 20 MEQ/1,000 ML INFUS.BAG IV SCH ×2 (14:12→17:01)
[2021-01-06] MEDS ORDERED: PIPERACILLIN/TAZOBACTAM 3.375 GM VIAL IVPB ONE (17:19)
[2021-01-06] MEDS ORDERED: DEXTROSE 5%-WATER - 50 ML IVPB ONE (17:19)
[2021-01-06] MEDS: PIPERACILLIN/TAZOB 3.375 GM 3.375 GM in DEXTROSE 5%-WATER - 50 ML IVPB SCH (17:33)
[2021-01-06 20:32] LABS: HEMATOCRIT 34.6 % (35.4-49); HEMOGLOBIN 11.2 GM/dL (11.7-16.9); MCH 29.8 pg (25.7-33.7); MCHC 32.4 g/dl (32.0-35.9); MEAN CELL VOLUME 91.9 fl (80-96); MEAN PLT VOLUME 11.2 fl (7.5-11.1); RBC 3.77 M/mm3 (4.00-5.60); RDW 19.8 % (11.9-15.9)
[2021-01-06 20:43] LABS: PLATELET COUNT 7 K/MM3 (134-434); WHITE BLOOD COUNT 0.1 K/mm3 (4.0-10.0)
[2021-01-06 20:53] LABS: CHLORIDE 114 mmol/L (98-107); POTASSIUM 4.5 mmol/L (3.5-5.1); SODIUM 140 mmol/L (136-145)
[2021-01-06 20:55] LABS: CALCIUM 8.5 mg/dL (8.5-10.1)
[2021-01-06 20:56] LABS: ALBUMIN 1.9 g/dl (3.4-5.0); ANION GAP 6 MMOL/L (8-16); BLOOD UREA NITROGEN 15.1 mg/dL (7-18); CO2 20 mmol/L (21-32); GLUCOSE,RANDOM 102 mg/dL (74-106)
[2021-01-06 20:57] LABS: MAGNESIUM 1.8 mg/dL (1.8-2.4)
[2021-01-06 21:00] LABS: BILIRUBIN,TOTAL 2.2 mg/dL (0.2-1); SGPT/ALT 26 U/L (13-61)
[2021-01-06 21:01] LABS: IRON SERUM 19 ug/dL (50-175); SGOT/AST 7 U/L (15-37); TOT PROT 4.6 g/dl (6.4-8.2); TOTAL IRON BINDING CAPACITY 92 ug/dL (250-450)
[2021-01-06 21:02] LABS: ALK PHOS 101 U/L (45-117)
[2021-01-06 21:44] LABS: CREATININE < 0.2 mg/dL (0.55-1.3)
[2021-01-06 21:46] LABS: ANISOCYTOSIS 2+; MACROCYTOSIS 0; OVALOCYTE 2+; PLATELET ESTIMATE DECREASED
[2021-01-06] MEDS: CHLORHEXIDINE GLUCONATE 4% CLEANSER FOR DECOLONIZATION TP SCH (21:55)
[2021-01-07] MEDS: VANCOMYCIN 750 MG in DEXTROSE 5%-WATER - 250 ML IVPB SCH ×2 (01:45→13:14)
[2021-01-07] MEDS: MAG HYDROX/ALH/SMC/DPHA/LIDO 240 ML MOUTHWASH MM SCH ×6 (01:47→17:09)
[2021-01-07] MEDS: LIDOCAINE VISCOUS 2% ORAL/TOP 20 ML UNIT-DOSE CUP MM PRN ×2 (02:11→09:54)
[2021-01-07] MEDS ORDERED: PIPERACILLIN/TAZOBACTAM 3.375 GM VIAL IVPB ONE ×3 (02:14→16:47)
[2021-01-07] MEDS ORDERED: DEXTROSE 5%-WATER - 50 ML IVPB ONE ×3 (02:15→16:47)
[2021-01-07] MEDS: PIPERACILLIN/TAZOB 3.375 GM 3.375 GM in DEXTROSE 5%-WATER - 50 ML IVPB SCH ×3 (02:59→17:08)
[2021-01-07] MEDS: ACYCLOVIR INJECTION 250 MG in DEXTROSE 5%-WATER - 100 ML IVPB SCH ×3 (03:30→18:00)
[2021-01-07] MEDS: METOPROLOL TARTRATE 5 MG/5 ML VIAL IVPUSH PRN ×2 (03:45→10:41)
[2021-01-07 07:22] LABS: HEMATOCRIT 35.8 % (35.4-49); HEMOGLOBIN 11.9 GM/dL (11.7-16.9); MCH 30.2 pg (25.7-33.7); MCHC 33.3 g/dl (32.0-35.9); MEAN CELL VOLUME 90.5 fl (80-96); MEAN PLT VOLUME 9.2 fl (7.5-11.1); PLATELET COUNT 39 K/MM3 (134-434); RBC 3.95 M/mm3 (4.00-5.60); RDW 19.4 % (11.9-15.9)
[2021-01-07 07:33] LABS: WHITE BLOOD COUNT 0.2 K/mm3 (4.0-10.0)
[2021-01-07 07:48] LABS: CHLORIDE 115 mmol/L (98-107); POTASSIUM 4.6 mmol/L (3.5-5.1); SODIUM 143 mmol/L (136-145)
[2021-01-07 07:49] LABS: CALCIUM 8.5 mg/dL (8.5-10.1); GLUCOSE,RANDOM 85 mg/dL (74-106)
[2021-01-07 07:50] LABS: ANION GAP 7 MMOL/L (8-16); BLOOD UREA NITROGEN 14.6 mg/dL (7-18); CO2 21 mmol/L (21-32)
[2021-01-07 07:53] LABS: SGOT/AST 10 U/L (15-37); SGPT/ALT 27 U/L (13-61)
[2021-01-07 07:55] LABS: ALK PHOS 112 U/L (45-117); BILIRUBIN,TOTAL 2.2 mg/dL (0.2-1); TOT PROT 4.8 g/dl (6.4-8.2)
[2021-01-07 07:57] LABS: CREATININE < 0.2 mg/dL (0.55-1.3)
[2021-01-07] MEDS ORDERED: TBO-FILGRASTIM 300 MCG/0.5 ML DISP.SYRINGE SQ ONE (09:00)
[2021-01-07] MEDS: COLLAGENASE CLOSTRIDIUM HIST. 30 GRAMS TUBE TP SCH (09:10)
[2021-01-07] MEDS: MUPIROCIN 2% TOPICAL OINTMENT FOR DECOLONIZATION NS SCH ×2 (09:10→21:38)
[2021-01-07] MEDS ORDERED: PT OWN MED DRAWER 7, Y5N ONE ×2 (09:14→17:46)
[2021-01-07] MEDS: FLUCONAZOLE 100 MG/NS 50 ML IVPB SCH (09:15)
[2021-01-07] MEDS: FAMOTIDINE 20 MG/50 ML IVPB 20 MG/50 ML MG IVPB SCH ×2 (09:16→21:38)
[2021-01-07] MEDS: METOPROLOL TARTRATE 25 MG TABLET (FP) PO SCH ×3 (11:45→21:38)
[2021-01-07] MEDS: FOLIC ACID 1 MG TABLET (FP) PO SCH ×2 (11:45→13:05)
[2021-01-07] MEDS: SODIUM CHLORIDE 0.9%/KCL 20 MEQ/1,000 ML INFUS.BAG IV SCH ×2 (17:08→19:32)
[2021-01-07] MEDS ORDERED: LIDOCAINE VISCOUS 2% ORAL/TOP 20 ML UNIT-DOSE CUP MM PRN (19:12)
[2021-01-07] MEDS ORDERED: ACETAMINOPHEN 1000 MG/100 ML VIAL (NON FORMULARY) IVPB ONE (19:21)
[2021-01-07] MEDS: CHLORHEXIDINE GLUCONATE 4% CLEANSER FOR DECOLONIZATION TP SCH (21:38)
[2021-01-08] MEDS ORDERED: ACETAMINOPHEN 650 MG/20.3 ML ORAL SOLUTION (CUPS) PO PRN (00:05)
[2021-01-08] MEDS ORDERED: ACETAMINOPHEN 1000 MG/100 ML VIAL (NON FORMULARY) IVPB ONE (00:11)
[2021-01-08] MEDS: MAG HYDROX/ALH/SMC/DPHA/LIDO 240 ML MOUTHWASH MM SCH ×4 (00:36→17:32)
[2021-01-08] MEDS ORDERED: DEXTROSE 5%-WATER - 50 ML IVPB ONE ×3 (00:38→17:13)
[2021-01-08] MEDS ORDERED: PIPERACILLIN/TAZOBACTAM 3.375 GM VIAL IVPB ONE ×3 (00:38→17:13)
[2021-01-08] MEDS ORDERED: PT OWN MED DRAWER 7, Y5N ONE ×4 (00:38→10:38)
[2021-01-08] MEDS: VANCOMYCIN 750 MG in DEXTROSE 5%-WATER - 250 ML IVPB SCH ×2 (00:46→12:59)
[2021-01-08] MEDS: METOPROLOL TARTRATE 5 MG/5 ML VIAL IVPUSH PRN ×6 (00:47→22:20)
[2021-01-08] MEDS: PIPERACILLIN/TAZOB 3.375 GM 3.375 GM in DEXTROSE 5%-WATER - 50 ML IVPB SCH ×3 (01:20→17:00)
[2021-01-08] MEDS: ACYCLOVIR INJECTION 250 MG in DEXTROSE 5%-WATER - 100 ML IVPB SCH ×3 (01:47→18:21)
[2021-01-08] MEDS: MUPIROCIN 2% TOPICAL OINTMENT FOR DECOLONIZATION NS SCH ×2 (09:30→22:14)
[2021-01-08] MEDS: FLUCONAZOLE 100 MG/NS 50 ML IVPB SCH (09:30)
[2021-01-08] MEDS: FAMOTIDINE 20 MG/50 ML IVPB 20 MG/50 ML MG IVPB SCH ×2 (10:10→23:00)
[2021-01-08] MEDS: FOLIC ACID 1 MG TABLET (FP) PO SCH ×2 (10:19→11:00)
[2021-01-08] MEDS: METOPROLOL TARTRATE 25 MG TABLET (FP) PO SCH ×3 (10:19→22:15)
[2021-01-08] MEDS: COLLAGENASE CLOSTRIDIUM HIST. 30 GRAMS TUBE TP SCH (11:02)
[2021-01-08] MEDS ORDERED: TBO-FILGRASTIM 300 MCG/0.5 ML DISP.SYRINGE SQ ONE (15:38)
[2021-01-08] MEDS: NYSTATIN 500,000 UNITS/5 ML SUSPENSION PO SCH ×2 (17:33→18:28)
[2021-01-08] MEDS ORDERED: ACETAMINOPHEN 1000 MG/100 ML VIAL (NON FORMULARY) IVPB PRN (18:14)
[2021-01-08] MEDS: SODIUM CHLORIDE 0.9%/KCL 20 MEQ/1,000 ML INFUS.BAG IV SCH (22:14)
[2021-01-08] MEDS: CHLORHEXIDINE GLUCONATE 4% CLEANSER FOR DECOLONIZATION TP SCH (22:15)
[2021-01-08] MEDS: ACETAMINOPHEN 1000 MG/100 ML VIAL (NON FORMULARY) IVPB PRN (22:15)
[2021-01-09] MEDS: NYSTATIN 500,000 UNITS/5 ML SUSPENSION PO SCH ×5 (00:42→23:48)
[2021-01-09] MEDS: MAG HYDROX/ALH/SMC/DPHA/LIDO 240 ML MOUTHWASH MM SCH ×5 (00:42→23:48)
[2021-01-09] MEDS ORDERED: DEXTROSE 5%-WATER - 50 ML IVPB ONE ×4 (01:07→22:26)
[2021-01-09] MEDS ORDERED: PIPERACILLIN/TAZOBACTAM 3.375 GM VIAL IVPB ONE ×4 (01:07→22:26)
[2021-01-09] MEDS ORDERED: INSULIN (NOVOLOG) ASPART 100 UNITS/ML 10ML VIAL ONE (01:08)
[2021-01-09] MEDS ORDERED: LORazepam 2 MG/ML SDV VIAL IVPB ONE (02:09)
[2021-01-09] MEDS: ACYCLOVIR INJECTION 250 MG in DEXTROSE 5%-WATER - 100 ML IVPB SCH ×3 (04:46→17:19)
[2021-01-09] MEDS: PIPERACILLIN/TAZOB 3.375 GM 3.375 GM in DEXTROSE 5%-WATER - 50 ML IVPB SCH ×3 (05:58→18:13)
[2021-01-09] MEDS: VANCOMYCIN 750 MG in DEXTROSE 5%-WATER - 250 ML IVPB SCH ×2 (05:58→13:42)
[2021-01-09] MEDS: METOPROLOL TARTRATE 5 MG/5 ML VIAL IVPUSH PRN ×4 (07:26→18:30)
[2021-01-09] MEDS ORDERED: PT OWN MED DRAWER 7, Y5N ONE ×3 (09:10→22:26)
[2021-01-09] MEDS: FAMOTIDINE 20 MG/50 ML IVPB 20 MG/50 ML MG IVPB SCH ×2 (09:14→22:06)
[2021-01-09] MEDS: MUPIROCIN 2% TOPICAL OINTMENT FOR DECOLONIZATION NS SCH ×2 (09:14→22:06)
[2021-01-09] MEDS: FOLIC ACID 1 MG TABLET (FP) PO SCH (09:15)
[2021-01-09] MEDS: METOPROLOL TARTRATE 25 MG TABLET (FP) PO SCH ×2 (09:15→22:06)
[2021-01-09] MEDS: COLLAGENASE CLOSTRIDIUM HIST. 30 GRAMS TUBE TP SCH (09:19)
[2021-01-09] MEDS: FLUCONAZOLE 100 MG/NS 50 ML IVPB SCH (09:50)
[2021-01-09] MEDS: SODIUM CHLORIDE 1,000 ML IV SCH (10:28)
[2021-01-09] MEDS ORDERED: TBO-FILGRASTIM 300 MCG/0.5 ML DISP.SYRINGE SQ ONE (13:15)
[2021-01-09] MEDS: DEXMEDETOMIDINE IN 0.9 % NACL 200 MCG/50 ML EACH IVPB SCH (15:41)
[2021-01-09] MEDS ORDERED: SODIUM CHLORIDE 0.9% 500 ML INFUS.BAG IV ONE (17:27)
[2021-01-09 18:01] LABS: HEMATOCRIT 35.1 % (35.4-49); HEMOGLOBIN 11.6 GM/dL (11.7-16.9); MCH 29.4 pg (25.7-33.7); MCHC 33.2 g/dl (32.0-35.9); MEAN CELL VOLUME 88.7 fl (80-96); MEAN PLT VOLUME 10.5 fl (7.5-11.1); RBC 3.95 M/mm3 (4.00-5.60); RDW 18.7 % (11.9-15.9)
[2021-01-09 18:04] LABS: URINE APPEARANCE CLEAR; URINE BILIRUBIN NEGATIVE (NEGATIVE); URINE COLOR YELLOW; URINE GLUCOSE (UA) NEGATIVE (NEGATIVE); URINE KETONE NEGATIVE (NEGATIVE); URINE LEUK ESTERASE NEGATIVE (NEGATIVE); URINE NITRITE NEGATIVE (NEGATIVE); URINE PROTEIN NEGATIVE (NEGATIVE); URINE UROBILINOGEN 0.2 mg/dL (0.2-1.0)
[2021-01-09 18:06] LABS: PLATELET COUNT 36 K/MM3 (134-434); WHITE BLOOD COUNT 1.9 K/mm3 (4.0-10.0)
[2021-01-09 18:16] LABS: CHLORIDE 106 mmol/L (98-107); POTASSIUM 3.4 mmol/L (3.5-5.1); SODIUM 135 mmol/L (136-145)
[2021-01-09 18:18] LABS: CALCIUM 7.7 mg/dL (8.5-10.1)
[2021-01-09 18:19] LABS: ANION GAP 6 MMOL/L (8-16); BLOOD UREA NITROGEN 5.1 mg/dL (7-18); CO2 23 mmol/L (21-32); MAGNESIUM 1.2 mg/dL (1.8-2.4)
[2021-01-09 18:22] LABS: SGOT/AST 8 U/L (15-37); SGPT/ALT 20 U/L (13-61)
[2021-01-09 18:23] LABS: PHOSPHOROUS 1.9 mg/dL (2.5-4.9)
[2021-01-09 18:24] LABS: BILIRUBIN,TOTAL 1.9 mg/dL (0.2-1)
[2021-01-09 18:25] LABS: ALK PHOS 127 U/L (45-117)
[2021-01-09 18:27] LABS: ALBUMIN 1.5 g/dl (3.4-5.0); GLUCOSE,RANDOM 48 mg/dL (74-106)
[2021-01-09 18:28] LABS: CREATININE < 0.2 mg/dL (0.55-1.3)
[2021-01-09] MEDS ORDERED: DEXTROSE 50%-WATER - 25 GM/50 ML VIAL IVPUSH ONE ×3 (18:31→22:02)
[2021-01-09 18:33] LABS: ANISOCYTOSIS 2+; MACROCYTOSIS 0; OVALOCYTE 2+; PLATELET ESTIMATE DECREASED
[2021-01-09] MEDS ORDERED: DEXTROSE 50%-WATER - 25 GM/50 ML VIAL ONE (18:36)
[2021-01-09 19:17] LABS: HIV INTERPRETATION NEGATIVE (NEGATIVE)
[2021-01-09] MEDS ORDERED: DEXTROSE 50%-WATER 25 GM/50 ML DISP.SYRIN ONE ×4 (21:25→22:25)
[2021-01-09] MEDS: CHLORHEXIDINE GLUCONATE 4% CLEANSER FOR DECOLONIZATION TP SCH (22:06)
[2021-01-09] MEDS: AMINO ACIDS 4.25%/D5W 1,000 ML IV SCH (22:06)
[2021-01-09] MEDS: MULTIVIT INJ. ADULT COMBO WITH VIT K 1 COMBO 10 ML VIAL IV SCH (22:06)
[2021-01-10] MEDS: VANCOMYCIN 750 MG in DEXTROSE 5%-WATER - 250 ML IVPB SCH (00:20)
[2021-01-10 00:59] LABS: CHLORIDE 106 mmol/L (98-107); SODIUM 134 mmol/L (136-145)
[2021-01-10 01:00] LABS: CALCIUM 7.4 mg/dL (8.5-10.1)
[2021-01-10 01:01] LABS: BLOOD UREA NITROGEN 4.6 mg/dL (7-18); CO2 23 mmol/L (21-32)
[2021-01-10 01:02] LABS: GLUCOSE,RANDOM 254 mg/dL (74-106)
[2021-01-10 01:05] LABS: CREATININE < 0.2 mg/dL (0.55-1.3)
[2021-01-10 01:07] LABS: ANION GAP 6 MMOL/L (8-16); POTASSIUM 2.7 mmol/L (3.5-5.1)
[2021-01-10] MEDS ORDERED: POTASSIUM CHLORIDE TABS 20 MEQ TABLET.ER (FP) PO ONE (01:11)
[2021-01-10] MEDS ORDERED: POTASSIUM CHLORIDE ORAL LIQUID 20 MEQ/15 ML PO ONE (01:13)
[2021-01-10] MEDS ORDERED: KCL 10 MEQ IVPB 10 MEQ/100 ML INFUS.BAG IVPB SCH (01:15)
[2021-01-10] MEDS: PIPERACILLIN/TAZOB 3.375 GM 3.375 GM in DEXTROSE 5%-WATER - 50 ML IVPB SCH ×2 (01:20→09:43)
[2021-01-10] MEDS ORDERED: POTASSIUM CHLORIDE 20 MEQ PREMIX IVPB 100 ML IVPB ONE (01:30)
[2021-01-10] MEDS: ACYCLOVIR INJECTION 250 MG in DEXTROSE 5%-WATER - 100 ML IVPB SCH ×4 (01:51→19:13)
[2021-01-10] MEDS: NYSTATIN 500,000 UNITS/5 ML SUSPENSION PO SCH ×4 (06:10→23:13)
[2021-01-10] MEDS: MAG HYDROX/ALH/SMC/DPHA/LIDO 240 ML MOUTHWASH MM SCH ×4 (06:10→23:12)
[2021-01-10] MEDS: AMINO ACIDS 4.25%/D5W 1,000 ML IV SCH ×2 (06:10→13:07)
[2021-01-10 07:03] LABS: CHLORIDE 106 mmol/L (98-107); SODIUM 133 mmol/L (136-145)
[2021-01-10 07:07] LABS: ALBUMIN 1.4 g/dl (3.4-5.0); ANION GAP 5 MMOL/L (8-16); BLOOD UREA NITROGEN 6.6 mg/dL (7-18); CALCIUM 7.8 mg/dL (8.5-10.1); CO2 21 mmol/L (21-32); GLUCOSE,RANDOM 178 mg/dL (74-106); MAGNESIUM 1.1 mg/dL (1.8-2.4)
[2021-01-10 07:10] LABS: SGOT/AST 8 U/L (15-37); SGPT/ALT 19 U/L (13-61)
[2021-01-10 07:11] LABS: CREATININE < 0.2 mg/dL (0.55-1.3); PHOSPHOROUS 1.3 mg/dL (2.5-4.9)
[2021-01-10 07:12] LABS: BASO % 0.4 % (0-2.0); EOS % 0.5 % (0-4.5); HEMATOCRIT 34.6 % (35.4-49); HEMOGLOBIN 11.7 GM/dL (11.7-16.9); LYMPH % 5.5 % (8-40); MCH 29.9 pg (25.7-33.7); MCHC 33.8 g/dl (32.0-35.9); MEAN CELL VOLUME 88.4 fl (80-96); MEAN PLT VOLUME 10.4 fl (7.5-11.1); MONO % 0.6 % (3.8-10.2); PLATELET COUNT 38 K/MM3 (134-434); RBC 3.92 M/mm3 (4.00-5.60); TOT PROT 3.8 g/dl (6.4-8.2); WHITE BLOOD COUNT 3.7 K/mm3 (4.0-10.0)
[2021-01-10 07:13] LABS: ALK PHOS 122 U/L (45-117)
[2021-01-10] MEDS ORDERED: MAGNESIUM SULF 50% (8.12 MEQ/2 ML-1 GM VIAL) IVPB ONE (08:00)
[2021-01-10] MEDS ORDERED: POTASSIUM PHOSPHATE 30 MM in SODIUM CHLORIDE 250 ML IVPB ONE (08:00)
[2021-01-10 08:52] LABS: ANISOCYTOSIS 1+; MACROCYTOSIS 0; OVALOCYTE 1+; PLATELET ESTIMATE DECREASED; TARGET CELLS 1+; TOXIC GRANULATION 1+
[2021-01-10] MEDS: ACETAMINOPHEN 1000 MG/100 ML VIAL (NON FORMULARY) IVPB PRN (09:17)
[2021-01-10] MEDS ORDERED: DEXTROSE 5%-WATER - 50 ML IVPB ONE (09:38)
[2021-01-10] MEDS ORDERED: PIPERACILLIN/TAZOBACTAM 3.375 GM VIAL IVPB ONE (09:38)
[2021-01-10] MEDS: COLLAGENASE CLOSTRIDIUM HIST. 30 GRAMS TUBE TP SCH (09:43)
[2021-01-10] MEDS: FAMOTIDINE 20 MG/50 ML IVPB 20 MG/50 ML MG IVPB SCH ×2 (09:43→21:25)
[2021-01-10] MEDS: FOLIC ACID 1 MG TABLET (FP) PO SCH (09:43)
[2021-01-10] MEDS: METOPROLOL TARTRATE 25 MG TABLET (FP) PO SCH ×2 (09:43→21:25)
[2021-01-10] MEDS: MUPIROCIN 2% TOPICAL OINTMENT FOR DECOLONIZATION NS SCH ×2 (10:18→21:24)
[2021-01-10] MEDS: SODIUM CHLORIDE 1,000 ML IV SCH (10:19)
[2021-01-10] MEDS ORDERED: PT OWN MED DRAWER 7, Y5N ONE ×3 (10:55→18:43)
[2021-01-10] MEDS: FLUCONAZOLE 100 MG/NS 50 ML IVPB SCH (11:36)
[2021-01-10] MEDS: ALBUTEROL SO4 2.5/IPRATROPIUM 0.5 INH SOL 3 ML VIAL.NEB. NEB SCH ×3 (12:15→20:53)
[2021-01-10] MEDS ORDERED: DEXTROSE 50%-WATER 25 GM/50 ML DISP.SYRIN ONE ×3 (12:25→14:17)
[2021-01-10] MEDS ORDERED: DEXTROSE 50%-WATER - 25 GM/50 ML VIAL IVPUSH ONE ×2 (12:27→13:20)
[2021-01-10] MEDS ORDERED: DEXTROSE 5%-NORMAL SALINE 1,000 ML IV SCH (12:30)
[2021-01-10] MEDS ORDERED: TBO-FILGRASTIM 300 MCG/0.5 ML DISP.SYRINGE SQ ONE (13:21)
[2021-01-10] MEDS ORDERED: DEXTROSE 10%-WATER - 1,000 ML IV SCH (13:30)
[2021-01-10] MEDS: HYDROCORTISONE SOD SUCCINATE 100 MG/2 ML VIAL IVPB SCH (14:07)
[2021-01-10] MEDS: THIAMINE HCL 200 MG/2 ML VIAL IVPB SCH ×2 (14:27→22:16)
[2021-01-10] MEDS: DEXMEDETOMIDINE IN 0.9 % NACL 200 MCG/50 ML EACH IVPB SCH (15:30)
[2021-01-10] MEDS: DEXTROSE 10%-WATER - 1,000 ML IV SCH (15:30)
[2021-01-10] MEDS ORDERED: MEROPENEM 1 GM VIAL (RESTRICTED TO ID) IVPB ONE ×2 (15:37→18:21)
[2021-01-10] MEDS ORDERED: DEXTROSE 5%-WATER 100 ML IVPB ONE ×2 (15:37→18:21)
[2021-01-10] MEDS: MEROPENEM 1 GM in DEXTROSE 5%-WATER 100 ML IVPB SCH ×2 (15:42→18:23)
[2021-01-10] MEDS: MULTIVIT INJ. ADULT COMBO WITH VIT K 1 COMBO 10 ML VIAL IV SCH (19:27)
[2021-01-10] MEDS: ACETYLCYSTEINE 20% 200MG/ML 30 ML VIAL *FOR ORAL / INH USE ONLY NEB SCH (20:54)
[2021-01-10] MEDS: CHLORHEXIDINE GLUCONATE 4% CLEANSER FOR DECOLONIZATION TP SCH (21:24)
[2021-01-11] MEDS ORDERED: DEXTROSE 5%-WATER 100 ML IVPB ONE ×3 (01:34→17:31)
[2021-01-11] MEDS ORDERED: MEROPENEM 1 GM VIAL (RESTRICTED TO ID) IVPB ONE ×3 (01:34→17:30)
[2021-01-11] MEDS ORDERED: PT OWN MED DRAWER 7, Y5N ONE ×6 (01:35→17:31)
[2021-01-11] MEDS: AMINO ACIDS 4.25%/D5W 1,000 ML IV SCH ×2 (01:39→14:04)
[2021-01-11 01:46] LABS: CHLORIDE 105 mmol/L (98-107); POTASSIUM 3.3 mmol/L (3.5-5.1); SODIUM 135 mmol/L (136-145)
[2021-01-11 01:48] LABS: ANION GAP 6 MMOL/L (8-16); BLOOD UREA NITROGEN 5.8 mg/dL (7-18); CALCIUM 7.8 mg/dL (8.5-10.1); CO2 24 mmol/L (21-32); GLUCOSE,RANDOM 187 mg/dL (74-106); MAGNESIUM 1.5 mg/dL (1.8-2.4)
[2021-01-11 01:52] LABS: PHOSPHOROUS 2.4 mg/dL (2.5-4.9)
[2021-01-11] MEDS: MEROPENEM 1 GM in DEXTROSE 5%-WATER 100 ML IVPB SCH ×3 (02:00→18:17)
[2021-01-11 02:16] LABS: BASO % 0.1 % (0-2.0); HEMATOCRIT 31.4 % (35.4-49); HEMOGLOBIN 10.3 GM/dL (11.7-16.9); LYMPH % 1.5 % (8-40); MCH 29.2 pg (25.7-33.7); MCHC 32.7 g/dl (32.0-35.9); MEAN CELL VOLUME 89.2 fl (80-96); MEAN PLT VOLUME 8.4 fl (7.5-11.1); MONO % 0.8 % (3.8-10.2); NEUT % 97.6 % (42.8-82.8); PLATELET COUNT 150 K/MM3 (134-434); RBC 3.52 M/mm3 (4.00-5.60); RDW 19.3 % (11.9-15.9); WHITE BLOOD COUNT 11.1 K/mm3 (4.0-10.0)
[2021-01-11 02:23] LABS: CREATININE < 0.2 mg/dL (0.55-1.3)
[2021-01-11] MEDS: ACYCLOVIR INJECTION 250 MG in DEXTROSE 5%-WATER - 100 ML IVPB SCH ×3 (02:32→17:35)
[2021-01-11] MEDS: METOPROLOL TARTRATE 5 MG/5 ML VIAL IVPUSH PRN ×4 (02:51→22:02)
[2021-01-11 03:13] LABS: ANISOCYTOSIS 1+; MACROCYTOSIS 1+; OVALOCYTE 1+; PLATELET ESTIMATE DECREASED
[2021-01-11] MEDS ORDERED: SODIUM CHLORIDE 0.9% 500 ML INFUS.BAG IV ONE (04:34)
[2021-01-11] MEDS ORDERED: POTASSIUM CHLORIDE 20 MEQ PREMIX IVPB 100 ML IVPB ONE (05:48)
[2021-01-11] MEDS ORDERED: MAGNESIUM SULF 50% (8.12 MEQ/2 ML-1 GM VIAL) IVPB ONE (05:49)
[2021-01-11] MEDS ORDERED: KCL 10 MEQ IVPB 10 MEQ/100 ML INFUS.BAG IVPB SCH (06:00)
[2021-01-11] MEDS ORDERED: DEXTROSE 50%-WATER - 25 GM/50 ML VIAL IVPUSH ONE (06:43)
[2021-01-11] MEDS ORDERED: DEXTROSE 50%-WATER 25 GM/50 ML DISP.SYRIN ONE (06:45)
[2021-01-11] MEDS: NYSTATIN 500,000 UNITS/5 ML SUSPENSION PO SCH ×3 (06:50→17:55)
[2021-01-11] MEDS: MAG HYDROX/ALH/SMC/DPHA/LIDO 240 ML MOUTHWASH MM SCH ×3 (06:50→17:54)
[2021-01-11 06:55] LABS: CHLORIDE 106 mmol/L (98-107); SODIUM 135 mmol/L (136-145)
[2021-01-11 06:56] LABS: CALCIUM 7.3 mg/dL (8.5-10.1)
[2021-01-11 06:57] LABS: ALBUMIN 1.5 g/dl (3.4-5.0); ANION GAP 7 MMOL/L (8-16); BLOOD UREA NITROGEN 6.6 mg/dL (7-18); CO2 23 mmol/L (21-32); GLUCOSE,RANDOM 135 mg/dL (74-106); MAGNESIUM 1.4 mg/dL (1.8-2.4)
[2021-01-11 06:59] LABS: BASO % 0.2 % (0-2.0); LYMPH % 1.7 % (8-40); MCH 29.3 pg (25.7-33.7); MCHC 33.3 g/dl (32.0-35.9); MEAN CELL VOLUME 87.8 fl (80-96); MEAN PLT VOLUME 8.7 fl (7.5-11.1); MONO % 0.9 % (3.8-10.2); NEUT % 97.2 % (42.8-82.8); PLATELET COUNT 146 K/MM3 (134-434); RBC 3.41 M/mm3 (4.00-5.60); RDW 19.4 % (11.9-15.9); WHITE BLOOD COUNT 13.8 K/mm3 (4.0-10.0)
[2021-01-11 07:00] LABS: SGOT/AST 7 U/L (15-37); SGPT/ALT 18 U/L (13-61)
[2021-01-11] MEDS ORDERED: POTASSIUM PHOSPHATE 30 MM in SODIUM CHLORIDE 250 ML IVPB ONE (07:00)
[2021-01-11 07:02] LABS: BILIRUBIN,TOTAL 1.1 mg/dL (0.2-1); TOT PROT 4.1 g/dl (6.4-8.2)
[2021-01-11 07:03] LABS: ALK PHOS 118 U/L (45-117)
[2021-01-11] MEDS: ALBUTEROL SO4 2.5/IPRATROPIUM 0.5 INH SOL 3 ML VIAL.NEB. NEB SCH ×4 (07:59→20:38)
[2021-01-11] MEDS: ACETYLCYSTEINE 20% 200MG/ML 30 ML VIAL *FOR ORAL / INH USE ONLY NEB SCH ×2 (08:01→20:37)
[2021-01-11] MEDS ORDERED: ALTEPLASE 2 MG VIAL CVP ONE (08:15)
[2021-01-11] MEDS: FAMOTIDINE 20 MG/50 ML IVPB 20 MG/50 ML MG IVPB SCH ×2 (09:26→22:01)
[2021-01-11] MEDS: THIAMINE HCL 200 MG/2 ML VIAL IVPB SCH ×2 (09:26→22:01)
[2021-01-11] MEDS: MUPIROCIN 2% TOPICAL OINTMENT FOR DECOLONIZATION NS SCH ×2 (09:32→21:54)
[2021-01-11] MEDS: FLUCONAZOLE 100 MG/NS 50 ML IVPB SCH (10:06)
[2021-01-11 10:51] LABS: CREATININE < 0.2 mg/dL (0.55-1.3)
[2021-01-11] MEDS ORDERED: PROPOFOL 200 MG/20 ML VIAL IVPUSH ONE ×3 (11:12)
[2021-01-11] MEDS ORDERED: MIDAZOLAM HCL 2 MG/2 ML SINGLE DOSE VIAL ONE (11:24)
[2021-01-11] MEDS ORDERED: PROPOFOL 1,000,000 MCG/100 ML VIAL ONE (11:25)
[2021-01-11] MEDS ORDERED: MIDAZOLAM HCL 2 MG/2 ML SINGLE DOSE VIAL IVPUSH ONE (11:30)
[2021-01-11] MEDS: METOPROLOL TARTRATE 25 MG TABLET (FP) PO SCH ×2 (12:16→21:54)
[2021-01-11] MEDS: FOLIC ACID 1 MG TABLET (FP) PO SCH (12:16)
[2021-01-11] MEDS: KCL 10 MEQ IVPB 10 MEQ/100 ML INFUS.BAG IVPB SCH ×5 (12:42→17:14)
[2021-01-11 12:45] LABS: ANISOCYTOSIS 1+; MACROCYTOSIS 0; OVALOCYTE 1+; PLATELET ESTIMATE DECREASED
[2021-01-11] MEDS ORDERED: GLUCAGON 1 MG KIT IVPUSH ONE (13:14)
[2021-01-11] MEDS: COLLAGENASE CLOSTRIDIUM HIST. 30 GRAMS TUBE TP SCH (15:00)
[2021-01-11] MEDS: HYDROCORTISONE SOD SUCCINATE 100 MG/2 ML VIAL IVPB SCH (15:16)
[2021-01-11] MEDS: DEXTROSE 10%-WATER - 1,000 ML IV SCH ×2 (15:59→19:01)
[2021-01-11] MEDS: MULTIVIT INJ. ADULT COMBO WITH VIT K 1 COMBO 10 ML VIAL IV SCH (17:36)
[2021-01-11] MEDS: DEXTROSE 50%-WATER - 25 GM/50 ML VIAL IVPUSH PRN ×2 (18:14→21:55)
[2021-01-11] MEDS ORDERED: DEXTROSE 50%-WATER 25 GM/50 ML DISP.SYRIN IVPUSH ONE (18:40)
[2021-01-11 19:30] LABS: CHLORIDE 104 mmol/L (98-107); POTASSIUM 3.6 mmol/L (3.5-5.1); SODIUM 134 mmol/L (136-145)
[2021-01-11 19:42] LABS: BLOOD UREA NITROGEN 5.7 mg/dL (7-18); CALCIUM 7.3 mg/dL (8.5-10.1)
[2021-01-11 19:43] LABS: ANION GAP 8 MMOL/L (8-16); CO2 22 mmol/L (21-32); GLUCOSE,RANDOM 265 mg/dL (74-106); MAGNESIUM 1.8 mg/dL (1.8-2.4)
[2021-01-11 19:46] LABS: CREATININE < 0.2 mg/dL (0.55-1.3); PHOSPHOROUS 2.8 mg/dL (2.5-4.9)
[2021-01-11] MEDS: DEXMEDETOMIDINE IN 0.9 % NACL 200 MCG/50 ML EACH IVPB SCH (21:19)
[2021-01-11] MEDS: CHLORHEXIDINE GLUCONATE 4% CLEANSER FOR DECOLONIZATION TP SCH (21:20)
[2021-01-12] MEDS: AMINO ACIDS 4.25%/D5W 1,000 ML IV SCH ×2 (01:02→13:20)
[2021-01-12] MEDS: NYSTATIN 500,000 UNITS/5 ML SUSPENSION PO SCH ×4 (01:02→18:15)
[2021-01-12] MEDS: MEROPENEM 1 GM in DEXTROSE 5%-WATER 100 ML IVPB SCH ×3 (01:02→18:14)
[2021-01-12] MEDS: MAG HYDROX/ALH/SMC/DPHA/LIDO 240 ML MOUTHWASH MM SCH ×4 (01:02→18:15)
[2021-01-12] MEDS: ACYCLOVIR INJECTION 250 MG in DEXTROSE 5%-WATER - 100 ML IVPB SCH ×3 (01:04→18:44)
[2021-01-12 06:51] LABS: BASO % 0.1 % (0-2.0); HEMATOCRIT 29.6 % (35.4-49); HEMOGLOBIN 10.1 GM/dL (11.7-16.9); LYMPH % 1.5 % (8-40); MCH 29.8 pg (25.7-33.7); MEAN CELL VOLUME 87.6 fl (80-96); MEAN PLT VOLUME 9.2 fl (7.5-11.1); MONO % 2.3 % (3.8-10.2); NEUT % 96.1 % (42.8-82.8); PLATELET COUNT 129 K/MM3 (134-434); RBC 3.38 M/mm3 (4.00-5.60); RDW 19.3 % (11.9-15.9); WHITE BLOOD COUNT 22.9 K/mm3 (4.0-10.0)
[2021-01-12 07:16] LABS: CHLORIDE 106 mmol/L (98-107); POTASSIUM 3.1 mmol/L (3.5-5.1); SODIUM 139 mmol/L (136-145)
[2021-01-12 07:20] LABS: ANION GAP 6 MMOL/L (8-16); BLOOD UREA NITROGEN 6.7 mg/dL (7-18); CALCIUM 8.1 mg/dL (8.5-10.1); CO2 26 mmol/L (21-32); GLUCOSE,RANDOM 157 mg/dL (74-106)
[2021-01-12 07:21] LABS: ALBUMIN 1.5 g/dl (3.4-5.0); MAGNESIUM 1.7 mg/dL (1.8-2.4)
[2021-01-12 07:23] LABS: SGOT/AST 11 U/L (15-37); SGPT/ALT 17 U/L (13-61)
[2021-01-12 07:24] LABS: BILIRUBIN,TOTAL 0.8 mg/dL (0.2-1); PHOSPHOROUS 1.9 mg/dL (2.5-4.9)
[2021-01-12 07:25] LABS: TOT PROT 4.2 g/dl (6.4-8.2)
[2021-01-12 07:26] LABS: ALK PHOS 150 U/L (45-117)
[2021-01-12] MEDS ORDERED: MAGNESIUM SULF 50% (8.12 MEQ/2 ML-1 GM VIAL) IVPB ONE (07:59)
[2021-01-12] MEDS ORDERED: MEROPENEM 1 GM VIAL (RESTRICTED TO ID) IVPB ONE ×2 (08:42→14:31)
[2021-01-12 08:43] LABS: ANISOCYTOSIS 2+; MACROCYTOSIS 0; OVALOCYTE 1+; PLATELET ESTIMATE DECREASED
[2021-01-12] MEDS ORDERED: DEXTROSE 5%-WATER 100 ML IVPB ONE (08:43)
[2021-01-12] MEDS: POTASSIUM CHLORIDE 20 MEQ PREMIX IVPB 100 ML IVPB SCH ×2 (08:50→10:28)
[2021-01-12] MEDS ORDERED: MAGNESIUM SULF 50% (8.12 MEQ/2 ML-1 GM VIAL) ONE (08:53)
[2021-01-12] MEDS ORDERED: POTASSIUM PHOSPHATE 30 MM in SODIUM CHLORIDE 250 ML IVPB ONE (09:00)
[2021-01-12] MEDS: FAMOTIDINE 20 MG/50 ML IVPB 20 MG/50 ML MG IVPB SCH ×2 (09:00→21:31)
[2021-01-12] MEDS: THIAMINE HCL 200 MG/2 ML VIAL IVPB SCH ×2 (09:01→21:32)
[2021-01-12] MEDS: MUPIROCIN 2% TOPICAL OINTMENT FOR DECOLONIZATION NS SCH (10:08)
[2021-01-12] MEDS: FOLIC ACID 1 MG TABLET (FP) PO SCH (10:26)
[2021-01-12] MEDS: METOPROLOL TARTRATE 25 MG TABLET (FP) PO SCH ×2 (10:26→21:31)
[2021-01-12] MEDS: FLUCONAZOLE 100 MG/NS 50 ML IVPB SCH (10:27)
[2021-01-12] MEDS: COLLAGENASE CLOSTRIDIUM HIST. 30 GRAMS TUBE TP SCH (10:47)
[2021-01-12] MEDS: ACETYLCYSTEINE 20% 200MG/ML 4 ML VIAL *FOR ORAL / INH USE ONLY NEB SCH ×2 (11:00→20:15)
[2021-01-12] MEDS: ALBUTEROL SO4 2.5/IPRATROPIUM 0.5 INH SOL 3 ML VIAL.NEB. NEB SCH ×2 (11:00→12:00)
[2021-01-12 12:03] LABS: CREATININE < 0.2 mg/dL (0.55-1.3)
[2021-01-12] MEDS: HYDROCORTISONE SOD SUCCINATE 100 MG/2 ML VIAL IVPB SCH (14:33)
[2021-01-12] MEDS: DEXMEDETOMIDINE IN 0.9 % NACL 200 MCG/50 ML EACH IVPB SCH (15:11)
[2021-01-12] MEDS: ACETAMINOPHEN 1000 MG/100 ML VIAL (NON FORMULARY) IVPB ONE ×2 (15:12→15:29)
[2021-01-12] MEDS ORDERED: PT OWN MED DRAWER 7, Y5N ONE (18:14)
[2021-01-12 19:53] LABS: CHLORIDE 105 mmol/L (98-107); POTASSIUM 4.3 mmol/L (3.5-5.1); SODIUM 134 mmol/L (136-145)
[2021-01-12 19:55] LABS: ANION GAP 5 MMOL/L (8-16); BLOOD UREA NITROGEN 7.3 mg/dL (7-18); CALCIUM 8.1 mg/dL (8.5-10.1); CO2 24 mmol/L (21-32); GLUCOSE,RANDOM 106 mg/dL (74-106)
[2021-01-12 20:06] LABS: CREATININE < 0.2 mg/dL (0.55-1.3)
[2021-01-12] MEDS: ALBUTEROL SO4 0.083% IH SOL 2.5 MG/3 ML VIAL.NEB. NEB SCH (20:15)
[2021-01-12] MEDS: DEXTROSE 10%-WATER - 1,000 ML IV SCH (21:31)
[2021-01-12] MEDS: CHLORHEXIDINE GLUCONATE 4% CLEANSER FOR DECOLONIZATION TP SCH (21:31)
[2021-01-12] MEDS: MULTIVIT INJ. ADULT COMBO WITH VIT K 1 COMBO 10 ML VIAL IV SCH (21:33)
[2021-01-13] MEDS: NYSTATIN 500,000 UNITS/5 ML SUSPENSION PO SCH ×4 (00:37→17:20)
[2021-01-13] MEDS: MAG HYDROX/ALH/SMC/DPHA/LIDO 240 ML MOUTHWASH MM SCH ×4 (00:37→17:21)
[2021-01-13] MEDS ORDERED: MEROPENEM 1 GM VIAL (RESTRICTED TO ID) IVPB ONE ×3 (01:07→17:17)
[2021-01-13] MEDS ORDERED: PT OWN MED DRAWER 7, Y5N ONE ×5 (01:07→18:40)
[2021-01-13] MEDS ORDERED: DEXTROSE 5%-WATER 100 ML IVPB ONE ×3 (01:07→17:17)
[2021-01-13] MEDS: AMINO ACIDS 4.25%/D5W 1,000 ML IV SCH ×2 (01:09→16:47)
[2021-01-13] MEDS: MEROPENEM 1 GM in DEXTROSE 5%-WATER 100 ML IVPB SCH ×3 (01:12→17:20)
[2021-01-13] MEDS: ACYCLOVIR INJECTION 250 MG in DEXTROSE 5%-WATER - 100 ML IVPB SCH ×3 (01:17→18:41)
[2021-01-13 07:29] LABS: CHLORIDE 103 mmol/L (98-107); POTASSIUM 4.3 mmol/L (3.5-5.1); SODIUM 134 mmol/L (136-145)
[2021-01-13 07:33] LABS: ALBUMIN 1.5 g/dl (3.4-5.0); ANION GAP 6 MMOL/L (8-16); BLOOD UREA NITROGEN 10.8 mg/dL (7-18); CALCIUM 7.7 mg/dL (8.5-10.1); CO2 25 mmol/L (21-32); GLUCOSE,RANDOM 107 mg/dL (74-106)
[2021-01-13 07:34] LABS: MAGNESIUM 1.9 mg/dL (1.8-2.4)
[2021-01-13 07:36] LABS: SGOT/AST 20 U/L (15-37); SGPT/ALT 19 U/L (13-61)
[2021-01-13 07:37] LABS: BILIRUBIN,TOTAL 0.6 mg/dL (0.2-1)
[2021-01-13 07:38] LABS: TOT PROT 4.1 g/dl (6.4-8.2)
[2021-01-13 07:40] LABS: ALK PHOS 270 U/L (45-117)
[2021-01-13 07:41] LABS: CREATININE < 0.2 mg/dL (0.55-1.3)
[2021-01-13 07:46] LABS: BASO % 0.2 % (0-2.0); HEMATOCRIT 27.2 % (35.4-49); HEMOGLOBIN 9.2 GM/dL (11.7-16.9); MCH 29.6 pg (25.7-33.7); MCHC 33.9 g/dl (32.0-35.9); MEAN CELL VOLUME 87.4 fl (80-96); MEAN PLT VOLUME 9.6 fl (7.5-11.1); NEUT % 97.8 % (42.8-82.8); PLATELET COUNT 108 K/MM3 (134-434); RBC 3.12 M/mm3 (4.00-5.60); RDW 18.9 % (11.9-15.9)
[2021-01-13 07:57] LABS: WHITE BLOOD COUNT 42.6 K/mm3 (4.0-10.0)
[2021-01-13] MEDS: ALBUTEROL SO4 0.083% IH SOL 2.5 MG/3 ML VIAL.NEB. NEB SCH ×4 (08:15→20:41)
[2021-01-13] MEDS: ACETYLCYSTEINE 20% 200MG/ML 4 ML VIAL *FOR ORAL / INH USE ONLY NEB SCH ×2 (08:15→20:41)
[2021-01-13] MEDS: FOLIC ACID 1 MG TABLET (FP) PO SCH (09:10)
[2021-01-13] MEDS: METOPROLOL TARTRATE 25 MG TABLET (FP) PO SCH ×2 (09:10→21:29)
[2021-01-13] MEDS: FAMOTIDINE 20 MG/50 ML IVPB 20 MG/50 ML MG IVPB SCH ×2 (09:18→21:29)
[2021-01-13] MEDS: FLUCONAZOLE 100 MG/NS 50 ML IVPB SCH (09:19)
[2021-01-13 09:52] LABS: ANISOCYTOSIS 2+; MACROCYTOSIS 0; OVALOCYTE 1+; PLATELET ESTIMATE DECREASED
[2021-01-13] MEDS: COLLAGENASE CLOSTRIDIUM HIST. 30 GRAMS TUBE TP SCH (11:00)
[2021-01-13] MEDS: HYDROCORTISONE SOD SUCCINATE 100 MG/2 ML VIAL IVPB SCH (12:57)
[2021-01-13] MEDS: DEXMEDETOMIDINE IN 0.9 % NACL 200 MCG/50 ML EACH IVPB SCH (16:47)
[2021-01-13] MEDS: MULTIVIT INJ. ADULT COMBO WITH VIT K 1 COMBO 10 ML VIAL IV SCH ×2 (21:28)
[2021-01-13] MEDS: CHLORHEXIDINE GLUCONATE 4% CLEANSER FOR DECOLONIZATION TP SCH (21:29)
[2021-01-14] MEDS: MAG HYDROX/ALH/SMC/DPHA/LIDO 240 ML MOUTHWASH MM SCH ×4 (00:20→17:24)
[2021-01-14] MEDS: NYSTATIN 500,000 UNITS/5 ML SUSPENSION PO SCH ×4 (00:20→17:25)
[2021-01-14] MEDS ORDERED: DEXTROSE 5%-WATER 100 ML IVPB ONE ×3 (01:06→17:17)
[2021-01-14] MEDS ORDERED: MEROPENEM 1 GM VIAL (RESTRICTED TO ID) IVPB ONE ×3 (01:06→17:17)
[2021-01-14] MEDS ORDERED: PT OWN MED DRAWER 7, Y5N ONE ×2 (01:07→09:08)
[2021-01-14] MEDS: AMINO ACIDS 4.25%/D5W 1,000 ML IV SCH (01:10)
[2021-01-14] MEDS: MEROPENEM 1 GM in DEXTROSE 5%-WATER 100 ML IVPB SCH ×3 (01:24→17:25)
[2021-01-14] MEDS: ACYCLOVIR INJECTION 250 MG in DEXTROSE 5%-WATER - 100 ML IVPB SCH ×3 (01:24→17:25)
[2021-01-14] MEDS: ALBUTEROL SO4 0.083% IH SOL 2.5 MG/3 ML VIAL.NEB. NEB SCH ×4 (07:30→20:15)
[2021-01-14] MEDS: ACETYLCYSTEINE 20% 200MG/ML 4 ML VIAL *FOR ORAL / INH USE ONLY NEB SCH ×4 (07:30→20:15)
[2021-01-14] MEDS: METOPROLOL TARTRATE 25 MG TABLET (FP) PO SCH ×2 (09:12→22:01)
[2021-01-14] MEDS: FOLIC ACID 1 MG TABLET (FP) PO SCH (09:13)
[2021-01-14] MEDS: FLUCONAZOLE 100 MG/NS 50 ML IVPB SCH (09:13)
[2021-01-14] MEDS: FAMOTIDINE 20 MG/50 ML IVPB 20 MG/50 ML MG IVPB SCH ×2 (09:13→22:01)
[2021-01-14] MEDS ORDERED: DEXTROSE 10%-WATER - 1,000 ML IV SCH (10:33)
[2021-01-14] MEDS ORDERED: LIDOCAINE VISCOUS 2% ORAL/TOP 20 ML UNIT-DOSE CUP MM PRN (10:33)
[2021-01-14] MEDS ORDERED: DEXTROSE 50%-WATER - 25 GM/50 ML VIAL IVPUSH PRN (10:33)
[2021-01-14 11:08] LABS: BASO % 0.4 % (0-2.0); HEMATOCRIT 27.8 % (35.4-49); HEMOGLOBIN 9.3 GM/dL (11.7-16.9); LYMPH % 0.9 % (8-40); MCH 29.1 pg (25.7-33.7); MCHC 33.3 g/dl (32.0-35.9); MEAN CELL VOLUME 87.3 fl (80-96); MEAN PLT VOLUME 10.7 fl (7.5-11.1); MONO % 1.9 % (3.8-10.2); NEUT % 96.8 % (42.8-82.8); PLATELET COUNT 138 K/MM3 (134-434); RBC 3.19 M/mm3 (4.00-5.60); RDW 18.8 % (11.9-15.9)
[2021-01-14 11:10] LABS: WHITE BLOOD COUNT 56.6 K/mm3 (4.0-10.0)
[2021-01-14 11:18] LABS: CHLORIDE 102 mmol/L (98-107); POTASSIUM 3.8 mmol/L (3.5-5.1); SODIUM 137 mmol/L (136-145)
[2021-01-14 11:22] LABS: ANION GAP 4 MMOL/L (8-16); BLOOD UREA NITROGEN 16.7 mg/dL (7-18); CALCIUM 8.4 mg/dL (8.5-10.1); CO2 31 mmol/L (21-32); GLUCOSE,RANDOM 158 mg/dL (74-106)
[2021-01-14 11:23] LABS: ALBUMIN 1.6 g/dl (3.4-5.0)
[2021-01-14 11:25] LABS: SGPT/ALT 34 U/L (13-61)
[2021-01-14] MEDS: DEXMEDETOMIDINE IN 0.9 % NACL 200 MCG/50 ML EACH IVPB SCH (11:25)
[2021-01-14 11:26] LABS: CREATININE < 0.2 mg/dL (0.55-1.3); SGOT/AST 39 U/L (15-37)
[2021-01-14 11:27] LABS: BILIRUBIN,TOTAL 0.7 mg/dL (0.2-1); TOT PROT 4.4 g/dl (6.4-8.2)
[2021-01-14 11:29] LABS: ALK PHOS 490 U/L (45-117)
[2021-01-14] MEDS ORDERED: FUROSEMIDE 40 MG/4 ML INJECTABLE VIAL IVPUSH ONE (11:56)
[2021-01-14] MEDS: COLLAGENASE CLOSTRIDIUM HIST. 30 GRAMS TUBE TP SCH (12:16)
[2021-01-14] MEDS ORDERED: AMINO ACIDS 4.25%/D5W 1,000 ML IV SCH (12:48)
[2021-01-14] MEDS: HYDROCORTISONE SOD SUCCINATE 100 MG/2 ML VIAL IVPB SCH (13:14)
[2021-01-14] MEDS: METOPROLOL TARTRATE 5 MG/5 ML VIAL IVPUSH PRN (13:14)
[2021-01-14 14:08] LABS: ANISOCYTOSIS 1+; MACROCYTOSIS 2+; OVALOCYTE 1+; PLATELET ESTIMATE DECREASED
[2021-01-14] MEDS ORDERED: ACETAMINOPHEN 650 MG/20.3 ML ORAL SOLUTION (CUPS) PO PRN (16:46)
[2021-01-14] MEDS: traMADol HCL 50 MG TABLET PO PRN (17:21)
[2021-01-14] MEDS: AMINO ACIDS/PROTEIN HYDROLYS 30 ML LIQUID.PKT PO SCH (17:24)
[2021-01-14] MEDS: MULTIVIT INJ. ADULT COMBO WITH VIT K 1 COMBO 10 ML VIAL IV SCH (17:31)
[2021-01-14] MEDS ORDERED: ACETYLCYSTEINE 20% 200MG/ML 4 ML VIAL *FOR ORAL / INH USE ONLY NEB SCH (20:00)
[2021-01-14] MEDS: CHLORHEXIDINE GLUCONATE 4% CLEANSER FOR DECOLONIZATION TP SCH (22:01)
[2021-01-15] MEDS: MAG HYDROX/ALH/SMC/DPHA/LIDO 240 ML MOUTHWASH MM SCH ×4 (01:13→17:46)
[2021-01-15] MEDS: NYSTATIN 500,000 UNITS/5 ML SUSPENSION PO SCH ×4 (01:13→17:46)
[2021-01-15] MEDS ORDERED: DEXTROSE 5%-WATER 100 ML IVPB ONE ×3 (03:07→18:07)
[2021-01-15] MEDS ORDERED: MEROPENEM 1 GM VIAL (RESTRICTED TO ID) IVPB ONE ×3 (03:07→18:07)
[2021-01-15] MEDS: MEROPENEM 1 GM in DEXTROSE 5%-WATER 100 ML IVPB SCH ×3 (03:09→18:26)
[2021-01-15] MEDS: ACYCLOVIR INJECTION 250 MG in DEXTROSE 5%-WATER - 100 ML IVPB SCH ×2 (06:51→09:04)
[2021-01-15] MEDS: ALBUTEROL SO4 0.083% IH SOL 2.5 MG/3 ML VIAL.NEB. NEB SCH ×4 (08:15→21:30)
[2021-01-15] MEDS: ACETYLCYSTEINE 20% 200MG/ML 4 ML VIAL *FOR ORAL / INH USE ONLY NEB SCH ×4 (08:16→21:30)
[2021-01-15] MEDS: AMINO ACIDS/PROTEIN HYDROLYS 30 ML LIQUID.PKT PO SCH ×2 (09:11→18:26)
[2021-01-15] MEDS: FOLIC ACID 1 MG TABLET (FP) PO SCH (09:11)
[2021-01-15] MEDS: METOPROLOL TARTRATE 25 MG TABLET (FP) PO SCH ×2 (09:11→21:43)
[2021-01-15] MEDS: FAMOTIDINE 20 MG/50 ML IVPB 20 MG/50 ML MG IVPB SCH ×2 (09:11→21:43)
[2021-01-15 09:47] LABS: BASO % 0.2 % (0-2.0); HEMATOCRIT 30.7 % (35.4-49); HEMOGLOBIN 9.9 GM/dL (11.7-16.9); LYMPH % 0.6 % (8-40); MCH 28.7 pg (25.7-33.7); MCHC 32.3 g/dl (32.0-35.9); MEAN CELL VOLUME 88.8 fl (80-96); MEAN PLT VOLUME 10.5 fl (7.5-11.1); MONO % 0.2 % (3.8-10.2); PLATELET COUNT 171 K/MM3 (134-434); RBC 3.46 M/mm3 (4.00-5.60); RDW 18.8 % (11.9-15.9)
[2021-01-15 09:53] LABS: WHITE BLOOD COUNT 67.6 K/mm3 (4.0-10.0)
[2021-01-15 09:54] LABS: CHLORIDE 99 mmol/L (98-107); SODIUM 138 mmol/L (136-145)
[2021-01-15 09:55] LABS: CALCIUM 8.7 mg/dL (8.5-10.1)
[2021-01-15 09:56] LABS: ALBUMIN 1.8 g/dl (3.4-5.0); BLOOD UREA NITROGEN 19.4 mg/dL (7-18); CO2 36 mmol/L (21-32); GLUCOSE,RANDOM 120 mg/dL (74-106)
[2021-01-15 09:59] LABS: SGOT/AST 45 U/L (15-37); SGPT/ALT 52 U/L (13-61)
[2021-01-15 10:01] LABS: BILIRUBIN,TOTAL 0.8 mg/dL (0.2-1)
[2021-01-15 10:10] LABS: ALK PHOS 587 U/L (45-117); ANION GAP 3 MMOL/L (8-16); POTASSIUM 2.8 mmol/L (3.5-5.1)
[2021-01-15 10:11] LABS: CREATININE < 0.2 mg/dL (0.55-1.3)
[2021-01-15] MEDS: DEXMEDETOMIDINE IN 0.9 % NACL 200 MCG/50 ML EACH IVPB SCH (10:33)
[2021-01-15] MEDS: COLLAGENASE CLOSTRIDIUM HIST. 30 GRAMS TUBE TP SCH (10:35)
[2021-01-15 11:20] LABS: ANISOCYTOSIS 2+; HOWELL-JOLLY BODIES 1+; MACROCYTOSIS 0; OVALOCYTE 1+; PLATELET ESTIMATE DECREASED; ROULEAU 1+; TOXIC GRANULATION 1+
[2021-01-15] MEDS: FLUCONAZOLE 100 MG/NS 50 ML IVPB SCH (11:38)
[2021-01-15] MEDS: traMADol HCL 50 MG TABLET PO PRN (11:39)
[2021-01-15] MEDS: POTASSIUM CHLORIDE ORAL LIQUID 20 MEQ/15 ML PO SCH ×2 (12:10→21:43)
[2021-01-15] MEDS: HYDROCORTISONE SOD SUCCINATE 100 MG/2 ML VIAL IVPB SCH (15:07)
[2021-01-15 16:55] LABS: PHOSPHOROUS 2.5 mg/dL (2.5-4.9)
[2021-01-15] MEDS: MULTIVIT INJ. ADULT COMBO WITH VIT K 1 COMBO 10 ML VIAL IV SCH (17:46)
[2021-01-15] MEDS: KCL 10 MEQ IVPB 10 MEQ/100 ML INFUS.BAG IVPB SCH ×2 (18:53→22:56)
[2021-01-15] MEDS ORDERED: SODIUM CHLORIDE 500 ML IV STA (20:23)
[2021-01-15] MEDS ORDERED: NOREPINEPHRINE BITARTRATE 4 MG/4 ML ML IV ONE (20:25)
[2021-01-15] MEDS ORDERED: PT OWN MED DRAWER 7, Y5N ONE (21:33)
[2021-01-15] MEDS: CHLORHEXIDINE GLUCONATE 4% CLEANSER FOR DECOLONIZATION TP SCH (21:43)
[2021-01-15] MEDS: NOREPINEPHRINE BITARTRATE 16,000 MCG in SODIUM CHLORIDE 484 ML IV SCH (21:44)
[2021-01-15] MEDS: METOPROLOL TARTRATE 5 MG/5 ML VIAL IVPUSH PRN (21:50)
[2021-01-15] MEDS ORDERED: SODIUM CHLORIDE 1,000 ML IV SCH (23:00)
[2021-01-15 23:24] LABS: ARTERIAL BLOOD GAS BASE EXCESS 0.7 mmol/L (-2-2); ARTERIAL BLOOD GAS PO2 37.3 mmHg (80-100); ARTERIAL BLOOD GAS pH 7.233 (7.350-7.450)
[2021-01-15 23:25] LABS: VENT MODE A/C; VENT RATE 14
[2021-01-16] MEDS: valACYclovir HCL 500 MG TABLET (FP) PO SCH ×3 (00:04→22:36)
[2021-01-16] MEDS ORDERED: SODIUM CHLORIDE 500 ML IV STA (00:07)
[2021-01-16] MEDS: KCL 10 MEQ IVPB 10 MEQ/100 ML INFUS.BAG IVPB SCH (00:08)
[2021-01-16] MEDS: METOPROLOL TARTRATE 5 MG/5 ML VIAL IVPUSH PRN (00:32)
[2021-01-16 00:56] LABS: ARTERIAL BLOOD GAS BASE EXCESS 1.6 mmol/L (-2-2); ARTERIAL BLOOD GAS PO2 40.7 mmHg (80-100); ARTERIAL BLOOD GAS pH 7.296 (7.350-7.450)
[2021-01-16 01:04] LABS: ARTERIAL BLD GAS O2 SATURATION 77.9 mmHg (95-98)
[2021-01-16 01:05] LABS: VENT MODE A/C; VENT RATE 16
[2021-01-16] MEDS: NYSTATIN 500,000 UNITS/5 ML SUSPENSION PO SCH ×4 (01:10→18:45)
[2021-01-16] MEDS: MAG HYDROX/ALH/SMC/DPHA/LIDO 240 ML MOUTHWASH MM SCH ×4 (01:10→18:45)
[2021-01-16] MEDS: POTASSIUM CHLORIDE 20 MEQ PREMIX IVPB 100 ML IVPB SCH ×2 (01:18→03:16)
[2021-01-16] MEDS ORDERED: dilTIAZem HCL 50 MG/10 ML - 10 ML VIAL IVPUSH ONE (02:46)
[2021-01-16] MEDS ORDERED: MEROPENEM 1 GM VIAL (RESTRICTED TO ID) IVPB ONE ×2 (03:04→09:59)
[2021-01-16] MEDS ORDERED: DEXTROSE 5%-WATER 100 ML IVPB ONE ×2 (03:05→09:59)
[2021-01-16] MEDS: MEROPENEM 1 GM in DEXTROSE 5%-WATER 100 ML IVPB SCH ×2 (03:05→10:06)
[2021-01-16] MEDS: VASOPRESSIN 40 UNITS in SODIUM CHLORIDE 98 ML IVPB SCH ×2 (05:53→13:45)
[2021-01-16 07:15] LABS: CHLORIDE 104 mmol/L (98-107); POTASSIUM 5.3 mmol/L (3.5-5.1); SODIUM 138 mmol/L (136-145)
[2021-01-16 07:18] LABS: CALCIUM 8.6 mg/dL (8.5-10.1)
[2021-01-16 07:19] LABS: ALBUMIN 1.5 g/dl (3.4-5.0); ANION GAP 3 MMOL/L (8-16); BLOOD UREA NITROGEN 21.3 mg/dL (7-18); CO2 31 mmol/L (21-32); GLUCOSE,RANDOM 73 mg/dL (74-106)
[2021-01-16 07:22] LABS: SGOT/AST 40 U/L (15-37); SGPT/ALT 37 U/L (13-61)
[2021-01-16 07:24] LABS: TOT PROT 4.2 g/dl (6.4-8.2)
[2021-01-16 07:34] LABS: ALK PHOS 450 U/L (45-117)
[2021-01-16 07:39] LABS: CREATININE < 0.2 mg/dL (0.55-1.3)
[2021-01-16 07:42] LABS: BASO % 0.2 % (0-2.0); EOS % 0.5 % (0-4.5); HEMATOCRIT 32.3 % (35.4-49); HEMOGLOBIN 10.1 GM/dL (11.7-16.9); LYMPH % 0.7 % (8-40); MCH 28.2 pg (25.7-33.7); MCHC 31.3 g/dl (32.0-35.9); MEAN CELL VOLUME 90.1 fl (80-96); MEAN PLT VOLUME 10.7 fl (7.5-11.1); MONO % 0.7 % (3.8-10.2); NEUT % 97.9 % (42.8-82.8); PLATELET COUNT 222 K/MM3 (134-434); RBC 3.59 M/mm3 (4.00-5.60); RDW 19.6 % (11.9-15.9)
[2021-01-16 08:22] LABS: MAGNESIUM 1.8 mg/dL (1.8-2.4)
[2021-01-16 08:26] LABS: PHOSPHOROUS 2.3 mg/dL (2.5-4.9)
[2021-01-16 08:50] LABS: WHITE BLOOD COUNT 90.1 K/mm3 (4.0-10.0)
[2021-01-16] MEDS: ALBUTEROL SO4 0.083% IH SOL 2.5 MG/3 ML VIAL.NEB. NEB SCH ×5 (08:50→20:43)
[2021-01-16] MEDS: ACETYLCYSTEINE 20% 200MG/ML 4 ML VIAL *FOR ORAL / INH USE ONLY NEB SCH ×4 (08:50→20:43)
[2021-01-16] MEDS: AMINO ACIDS/PROTEIN HYDROLYS 30 ML LIQUID.PKT PO SCH ×2 (09:04→17:30)
[2021-01-16] MEDS: COLLAGENASE CLOSTRIDIUM HIST. 30 GRAMS TUBE TP SCH (10:02)
[2021-01-16] MEDS: FOLIC ACID 1 MG TABLET (FP) PO SCH (10:03)
[2021-01-16] MEDS: METOPROLOL TARTRATE 25 MG TABLET (FP) PO SCH ×2 (10:03→22:36)
[2021-01-16] MEDS: FLUDROCORTISONE ACETATE 0.1 MG TABLET (FP) PO SCH (10:05)
[2021-01-16] MEDS: FLUCONAZOLE 100 MG/NS 50 ML IVPB SCH (10:07)
[2021-01-16] MEDS: FAMOTIDINE 20 MG/50 ML IVPB 20 MG/50 ML MG IVPB SCH ×2 (10:07→22:00)
[2021-01-16] MEDS: DEXMEDETOMIDINE IN 0.9 % NACL 200 MCG/50 ML EACH IVPB SCH (10:33)
[2021-01-16 10:44] LABS: ANISOCYTOSIS 1+; MACROCYTOSIS 0; OVALOCYTE 1+; PLATELET ESTIMATE NORMAL
[2021-01-16] MEDS: NOREPINEPHRINE BITARTRATE 16,000 MCG in SODIUM CHLORIDE 484 ML IV SCH (11:45)
[2021-01-16 12:59] VITALS: BMI 21.0
[2021-01-16] MEDS: ENOXAPARIN NA (PORCINE) 40 MG/0.4 ML DISP.SYRIN SQ SCH (14:01)
[2021-01-16] MEDS: HYDROCORTISONE SOD SUCCINATE 100 MG/2 ML VIAL IVPB SCH ×2 (14:01→18:00)
[2021-01-16] MEDS: ASPIRIN 81 MG CHEWABLE TABLETS PO SCH (14:01)
[2021-01-16] MEDS ORDERED: DEXTROSE 50%-WATER - 25 GM/50 ML VIAL IVPUSH ONE (15:22)
[2021-01-16] MEDS ORDERED: DEXTROSE 50%-WATER 25 GM/50 ML DISP.SYRIN ONE (15:22)
[2021-01-16] MEDS ORDERED: MORPHINE SULFATE 2 MG/ML VIAL IVPUSH ONE (15:46)
[2021-01-16] MEDS ORDERED: LORazepam 2 MG/ML SDV VIAL IVPUSH STA (16:06)
[2021-01-16] MEDS ORDERED: TIGECYCLINE 100 MG in DEXTROSE 5%-WATER - 100 ML IVPB ONE (17:00)
[2021-01-16] MEDS: MULTIVIT INJ. ADULT COMBO WITH VIT K 1 COMBO 10 ML VIAL IV SCH (18:00)
[2021-01-16] MEDS ORDERED: LIDOCAINE HCL 1%, 10 MG/ML (20ML VIAL) ONE (18:19)
[2021-01-16] MEDS: CEFTAZIDIME/AVIBACTAM 2.5 GM in DEXTROSE 5%-WATER - 250 ML IVPB SCH (18:44)
[2021-01-16] MEDS ORDERED: ACETAMINOPHEN 1000 MG/100 ML VIAL (NON FORMULARY) IVPB ONE (19:02)
[2021-01-16] MEDS ORDERED: VANCOMYCIN 1 GM in D5W (PRE-DOCKED) 1,000 MG/250 ML IVPB SCH (19:15)
[2021-01-16 20:08] LABS: CHLORIDE 110 mmol/L (98-107); POTASSIUM 3.6 mmol/L (3.5-5.1); SODIUM 142 mmol/L (136-145)
[2021-01-16] MEDS ORDERED: RACEPINEPHRINE IH SOL 2.25% 11.25 MG/0.5 ML VIAL IH ONE (20:08)
[2021-01-16 20:11] LABS: ANION GAP 7 MMOL/L (8-16); BLOOD UREA NITROGEN 18.5 mg/dL (7-18); CO2 25 mmol/L (21-32); GLUCOSE,RANDOM 206 mg/dL (74-106)
[2021-01-16 20:14] LABS: SGOT/AST 27 U/L (15-37); SGPT/ALT 21 U/L (13-61)
[2021-01-16 20:15] LABS: BILIRUBIN,TOTAL 0.7 mg/dL (0.2-1); TOT PROT 3.1 g/dl (6.4-8.2)
[2021-01-16] MEDS ORDERED: DIGOXIN 0.5 MG/2 ML AMPUL IVPUSH ONE (20:18)
[2021-01-16 20:24] LABS: ALBUMIN 1.1 g/dl (3.4-5.0); ALK PHOS 254 U/L (45-117); CALCIUM 7.2 mg/dL (8.5-10.1)
[2021-01-16 20:25] LABS: CREATININE < 0.2 mg/dL (0.55-1.3)
[2021-01-16] MEDS ORDERED: MIDAZOLAM IN 0.9 % SOD.CHLORID 1 MG/1 ML PLAST..BAG ONE (20:25)
[2021-01-16] MEDS ORDERED: MIDAZOLAM 100 MG in SODIUM CHLORIDE 100 ML IVPB SCH (20:30)
[2021-01-16] MEDS ORDERED: FENTANYL NS IVPB 500 MCG/100 ML BAG IVPB SCH (20:30)
[2021-01-16] MEDS ORDERED: MIDAZOLAM IN 0.9 % SOD.CHLORID 100 MG/100 ML PLAST..BAG IVPB SCH (20:37)
[2021-01-16 21:21] LABS: ARTERIAL BLOOD GAS BASE EXCESS 1.7 mmol/L (-2-2); ARTERIAL BLOOD GAS PO2 55.3 mmHg (80-100); ARTERIAL BLOOD GAS pH 7.378 (7.350-7.450)
[2021-01-16 21:23] LABS: ALLENS TEST POSITIVE; ARTERIAL BLD GAS O2 SATURATION 89.1 mmHg (95-98)
[2021-01-16 21:24] LABS: VENT MODE A/C; VENT RATE 16
[2021-01-16] MEDS ORDERED: NAPH,MB-DB/K PH,MBDB POWDER PACKET PEG SCH (22:00)
[2021-01-16] MEDS ORDERED: PT OWN MED DRAWER 7, Y5N ONE (22:15)
[2021-01-16] MEDS: CHLORHEXIDINE GLUCONATE 4% CLEANSER FOR DECOLONIZATION TP SCH (22:36)
[2021-01-17] MEDS: MAG HYDROX/ALH/SMC/DPHA/LIDO 240 ML MOUTHWASH MM SCH ×3 (00:15→17:12)
[2021-01-17] MEDS: HYDROCORTISONE SOD SUCCINATE 100 MG/2 ML VIAL IVPB SCH ×4 (00:15→17:10)
[2021-01-17] MEDS: NYSTATIN 500,000 UNITS/5 ML SUSPENSION PO SCH ×3 (00:15→17:12)
[2021-01-17 00:48] LABS: BASO % 0.1 % (0-2.0); EOS % 0.1 % (0-4.5); HEMATOCRIT 24.1 % (35.4-49); HEMOGLOBIN 7.9 GM/dL (11.7-16.9); LYMPH % 0.8 % (8-40); MCH 28.7 pg (25.7-33.7); MCHC 32.6 g/dl (32.0-35.9); MEAN CELL VOLUME 88.2 fl (80-96); MEAN PLT VOLUME 9.8 fl (7.5-11.1); MONO % 2.3 % (3.8-10.2); NEUT % 96.7 % (42.8-82.8); PLATELET COUNT 194 K/MM3 (134-434); RBC 2.74 M/mm3 (4.00-5.60); RDW 18.6 % (11.9-15.9)
[2021-01-17 00:59] LABS: WHITE BLOOD COUNT 57.1 K/mm3 (4.0-10.0)
[2021-01-17 01:18] LABS: CHLORIDE 106 mmol/L (98-107); POTASSIUM 4.1 mmol/L (3.5-5.1); SODIUM 144 mmol/L (136-145)
[2021-01-17 01:21] LABS: ALBUMIN 1.3 g/dl (3.4-5.0); ANION GAP 7 MMOL/L (8-16); BLOOD UREA NITROGEN 21.9 mg/dL (7-18); CO2 31 mmol/L (21-32); GLUCOSE,RANDOM 187 mg/dL (74-106); MAGNESIUM 1.9 mg/dL (1.8-2.4)
[2021-01-17 01:24] LABS: CREATININE < 0.2 mg/dL (0.55-1.3); SGOT/AST 31 U/L (15-37); SGPT/ALT 26 U/L (13-61)
[2021-01-17 01:25] LABS: BILIRUBIN,TOTAL 0.8 mg/dL (0.2-1)
[2021-01-17 01:26] LABS: TOT PROT 3.7 g/dl (6.4-8.2)
[2021-01-17 01:40] LABS: ALK PHOS 285 U/L (45-117); CALCIUM 8.5 mg/dL (8.5-10.1)
[2021-01-17] MEDS ORDERED: WATER IVPB ONE (03:00)
[2021-01-17] MEDS ORDERED: DEXTROSE IVPB ONE (03:00)
[2021-01-17] MEDS ORDERED: POTASSIUM PHOSPHATE IVPB ONE (03:00)
[2021-01-17] MEDS: DIGOXIN 0.5 MG/2 ML AMPUL IVPUSH SCH ×3 (04:19→16:00)
[2021-01-17 06:48] LABS: HEMATOCRIT 23.4 % (35.4-49); HEMOGLOBIN 7.4 GM/dL (11.7-16.9); LYMPH % 0.6 % (8-40); MCH 28.1 pg (25.7-33.7); MCHC 31.5 g/dl (32.0-35.9); MEAN CELL VOLUME 89.1 fl (80-96); MEAN PLT VOLUME 10.6 fl (7.5-11.1); MONO % 2.1 % (3.8-10.2); NEUT % 97.3 % (42.8-82.8); PLATELET COUNT 182 K/MM3 (134-434); RBC 2.63 M/mm3 (4.00-5.60); RDW 18.8 % (11.9-15.9)
[2021-01-17 06:56] LABS: INR 1.83 (0.83-1.09); PROTHROMBIN TIME (PATIENT) 22.1 SEC (9.7-13.0)
[2021-01-17 07:06] LABS: CHLORIDE 102 mmol/L (98-107); SODIUM 137 mmol/L (136-145)
[2021-01-17 07:09] LABS: ANION GAP 5 MMOL/L (8-16); BLOOD UREA NITROGEN 23.4 mg/dL (7-18); CALCIUM 8.2 mg/dL (8.5-10.1); CO2 30 mmol/L (21-32)
[2021-01-17 07:10] LABS: ALBUMIN 1.2 g/dl (3.4-5.0); GLUCOSE,RANDOM 209 mg/dL (74-106)
[2021-01-17 07:13] LABS: CREATININE < 0.2 mg/dL (0.55-1.3); SGOT/AST 29 U/L (15-37); SGPT/ALT 22 U/L (13-61)
[2021-01-17 07:14] LABS: BILIRUBIN,TOTAL 1.1 mg/dL (0.2-1); TOT PROT 3.6 g/dl (6.4-8.2)
[2021-01-17 07:15] LABS: ALK PHOS 266 U/L (45-117); WHITE BLOOD COUNT 61.7 K/mm3 (4.0-10.0)
[2021-01-17] MEDS: ALBUTEROL SO4 0.083% IH SOL 2.5 MG/3 ML VIAL.NEB. NEB SCH ×4 (07:32→20:49)
[2021-01-17] MEDS: ACETYLCYSTEINE 20% 200MG/ML 4 ML VIAL *FOR ORAL / INH USE ONLY NEB SCH ×4 (07:32→20:49)
[2021-01-17] MEDS ORDERED: PT OWN MED DRAWER 7, Y5N ONE ×6 (09:04→23:12)
[2021-01-17] MEDS: ENOXAPARIN NA (PORCINE) 40 MG/0.4 ML DISP.SYRIN SQ SCH (09:07)
[2021-01-17] MEDS: METOPROLOL TARTRATE 25 MG TABLET (FP) PO SCH ×2 (09:08→23:14)
[2021-01-17] MEDS: ASPIRIN 81 MG CHEWABLE TABLETS PO SCH (09:08)
[2021-01-17] MEDS: FLUDROCORTISONE ACETATE 0.1 MG TABLET (FP) PO SCH (09:09)
[2021-01-17] MEDS: FOLIC ACID 1 MG TABLET (FP) PO SCH (09:09)
[2021-01-17] MEDS: valACYclovir HCL 500 MG TABLET (FP) PO SCH ×2 (09:10→23:14)
[2021-01-17] MEDS: FAMOTIDINE 20 MG/50 ML IVPB 20 MG/50 ML MG IVPB SCH ×2 (09:12→23:14)
[2021-01-17] MEDS: CEFTAZIDIME/AVIBACTAM 2.5 GM in DEXTROSE 5%-WATER - 250 ML IVPB SCH ×2 (09:12→17:11)
[2021-01-17] MEDS: AMINO ACIDS/PROTEIN HYDROLYS 30 ML LIQUID.PKT PO SCH ×2 (09:15→16:41)
[2021-01-17] MEDS ORDERED: SODIUM ZIRCONIUM CYCLOSILICATE (LOKELMA) 5 GM PACKET PO ONE (10:34)
[2021-01-17] MEDS: DEXMEDETOMIDINE IN 0.9 % NACL 200 MCG/50 ML EACH IVPB SCH (11:24)
[2021-01-17] MEDS: FLUCONAZOLE 100 MG/NS 50 ML IVPB SCH (11:31)
[2021-01-17] MEDS: METOCLOPRAMIDE HCL INJECTION 10 MG/2 ML VIAL IVPUSH SCH ×2 (11:32→17:10)
[2021-01-17] MEDS: TIGECYCLINE 50 MG in DEXTROSE 5%-WATER - 100 ML IVPB SCH ×2 (13:38→23:15)
[2021-01-17] MEDS: COLLAGENASE CLOSTRIDIUM HIST. 30 GRAMS TUBE TP SCH (13:45)
[2021-01-17 15:36] LABS: CHLORIDE 102 mmol/L (98-107); POTASSIUM 4.6 mmol/L (3.5-5.1); SODIUM 138 mmol/L (136-145)
[2021-01-17 15:37] LABS: CALCIUM 7.9 mg/dL (8.5-10.1)
[2021-01-17 15:38] LABS: ANION GAP 5 MMOL/L (8-16); BLOOD UREA NITROGEN 20.8 mg/dL (7-18); CO2 30 mmol/L (21-32); GLUCOSE,RANDOM 196 mg/dL (74-106); MAGNESIUM 1.8 mg/dL (1.8-2.4)
[2021-01-17 15:58] LABS: CREATININE < 0.2 mg/dL (0.55-1.3)
[2021-01-17] MEDS: MULTIVIT INJ. ADULT COMBO WITH VIT K 1 COMBO 10 ML VIAL IV SCH (17:12)
[2021-01-17 20:29] LABS: CHLORIDE 102 mmol/L (98-107); POTASSIUM 4.6 mmol/L (3.5-5.1); SODIUM 137 mmol/L (136-145)
[2021-01-17 20:31] LABS: CALCIUM 7.8 mg/dL (8.5-10.1)
[2021-01-17 20:32] LABS: ALBUMIN 1.3 g/dl (3.4-5.0); ANION GAP 7 MMOL/L (8-16); BLOOD UREA NITROGEN 22.4 mg/dL (7-18); CO2 28 mmol/L (21-32); GLUCOSE,RANDOM 175 mg/dL (74-106)
[2021-01-17 20:35] LABS: CREATININE < 0.2 mg/dL (0.55-1.3); SGOT/AST 31 U/L (15-37); SGPT/ALT 21 U/L (13-61)
[2021-01-17 20:36] LABS: BILIRUBIN,TOTAL 0.9 mg/dL (0.2-1); TOT PROT 3.8 g/dl (6.4-8.2)
[2021-01-17 20:38] LABS: ALK PHOS 253 U/L (45-117)
[2021-01-17 20:45] LABS: ARTERIAL BLOOD GAS BASE EXCESS -2.7 mmol/L (-2-2); ARTERIAL BLOOD GAS pH 7.211 (7.350-7.450)
[2021-01-17 20:47] LABS: ALLENS TEST POSITIVE; VENT MODE A/C
[2021-01-17 20:48] LABS: ARTERIAL BLD GAS O2 SATURATION 56.6 mmHg (95-98); VENT RATE 16
[2021-01-17 20:50] LABS: ARTERIAL BLOOD GAS PO2 33.1 mmHg (80-100)
[2021-01-17] MEDS ORDERED: VANCOMYCIN 1 GM in D5W (PRE-DOCKED) 1,000 MG/250 ML IVPB SCH (21:00)
[2021-01-17 22:48] LABS: ARTERIAL BLOOD GAS BASE EXCESS -2.7 mmol/L (-2-2); ARTERIAL BLOOD GAS pH 7.249 (7.350-7.450)
[2021-01-17 22:53] LABS: ALLENS TEST POSITIVE
[2021-01-17 22:54] LABS: VENT MODE A/C; VENT RATE 16
[2021-01-17] MEDS: CHLORHEXIDINE GLUCONATE 4% CLEANSER FOR DECOLONIZATION TP SCH (23:14)
[2021-01-18] MEDS ORDERED: MAGNESIUM SULF 50% (8.12 MEQ/2 ML-1 GM VIAL) IVPB ONE
[2021-01-18] MEDS: HYDROCORTISONE SOD SUCCINATE 100 MG/2 ML VIAL IVPB SCH (00:40)
[2021-01-18] MEDS: MAG HYDROX/ALH/SMC/DPHA/LIDO 240 ML MOUTHWASH MM SCH (01:05)
[2021-01-18] MEDS: NYSTATIN 500,000 UNITS/5 ML SUSPENSION PO SCH (01:05)
[2021-01-18] MEDS: CEFTAZIDIME/AVIBACTAM 2.5 GM in DEXTROSE 5%-WATER - 250 ML IVPB SCH (01:09)
[2021-01-18 02:14] VITALS: TEMP 97.7
[2021-01-18 02:23] VITALS: BP 138/71; PULSE 79
== END 2021-01-18 06:33 | disposition expired | DRG 710 ==
LOC: JER 16:24 → JERBED 19:37 → JICU 22:14
PROVIDERS: ADMIT Family Medicine; ATTEND Family Medicine
PROC: 5A1955Z Respiratory Ventilation, Greater than 96 Consecutive Hours (ICD-10-PCS; principal; 2021-01-03)
PROC: 02HV33Z Insertion of Infusion Device into Superior Vena Cava, Percutaneous Approach (ICD-10-PCS; 2021-01-09)
PROC: B548ZZA Ultrasonography of Superior Vena Cava, Guidance (ICD-10-PCS; 2021-01-09)
PROC: 30233R1 Transfusion of Nonautologous Platelets into Peripheral Vein, Percutaneous Approach (ICD-10-PCS; 2021-01-10)
PROC: 0DH63UZ Insertion of Feeding Device into Stomach, Percutaneous Approach (ICD-10-PCS; 2021-01-11)
PROC: 3E0G76Z Introduction of Nutritional Substance into Upper GI, Via Natural or Artificial Opening (ICD-10-PCS; 2021-01-11)
PROC: 0B978ZZ Drainage of Left Main Bronchus, Via Natural or Artificial Opening Endoscopic (ICD-10-PCS; 2021-01-11)
PROC: 0B938ZZ Drainage of Right Main Bronchus, Via Natural or Artificial Opening Endoscopic (ICD-10-PCS; 2021-01-11)
PROC: 05H433Z Insertion of Infusion Device into Left Innominate Vein, Percutaneous Approach (ICD-10-PCS; 2021-01-16)
PROC: B54NZZA Ultrasonography of Left Upper Extremity Veins, Guidance (ICD-10-PCS; 2021-01-16)
DX: A41.9 Sepsis, unspecified organism (principal); E43 Unspecified severe protein-calorie malnutrition; Z99.11 Dependence on respirator [ventilator] status; J18.9 Pneumonia, unspecified organism; D61.818 Other pancytopenia; R64 Cachexia; R53.2 Functional quadriplegia; J96.11 Chronic respiratory failure with hypoxia; R13.10 Dysphagia, unspecified; D70.9 Neutropenia, unspecified; L89.150 Pressure ulcer of sacral region, unstageable; I71.2 Thoracic aortic aneurysm, without rupture; M32.9 Systemic lupus erythematosus, unspecified; M33.20 Polymyositis, organ involvement unspecified; I42.8 Other cardiomyopathies; I50.32 Chronic diastolic (congestive) heart failure; E88.09 Other disorders of plasma-protein metabolism, not elsewhere classified; B37.0 Candidal stomatitis; E83.42 Hypomagnesemia; E87.5 Hyperkalemia; I48.19 Other persistent atrial fibrillation; E87.2 Acidosis; I27.20 Pulmonary hypertension, unspecified; Z86.74 Personal history of sudden cardiac arrest; E87.6 Hypokalemia; R50.81 Fever presenting with conditions classified elsewhere; Z68.21 Body mass index [BMI] 21.0-21.9, adult; Z99.3 Dependence on wheelchair; D64.9 Anemia, unspecified; N48.5 Ulcer of penis; R55 Syncope and collapse; E86.1 Hypovolemia; F32.9 Major depressive disorder, single episode, unspecified; J98.11 Atelectasis; R91.8 Other nonspecific abnormal finding of lung field
CPT/HCPCS: 36415; 36430; 36511; 36600; 49440; 70450-TC; 71045-TC-FY; 74018-TC-FY; 80048; 80053; 81003; 82607; 82728; 82747; 82803; 82962; 83010; 83540; 83550; 83605; 83615; 83735; 84100; 84439; 84443; 84484; 85014; 85025; 85027; 85045; 85379; 85384; 85610; 85730; 86850; 86900; 86901; 86922; 87040; 87070; 87086; 87184; 87186; 87205; 87252; 87389; 87799; 87804; 93005; 93010; 93880-TC; 94002; 94640; 97161-GP; 99291; C9803; E0186; G0480; J0131; J1447; J2997; J3243; P9034; P9038; P9058; U0003